=== PATIENT | male | born 1945 | race Caucasian/White ===

== ENCOUNTER 2024-11-29 05:13 | Inpatient (IN) | payer OTHER, MEDICARE, MEDICAID ==
[~2024-11-29] VITALS: Ht 190.5 cm; Wt 92.7 kg
[2024-11-29] VITALS (15 sets, daily range): BP systolic 100–143; BP diastolic 57–99; PULSE 99–137; RESP 13–21; TEMP 97.4–98.5; O2SAT 92–98
--- NOTE | 2024-11-29 06:04 | Physician Documentation ---
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 Symptoms began after a trip and fall in the driveway. He had hurt his left ankle in his diagnosed with an ankle sprain izzy bandage was applied and when he removed it 4-5 days later he noticed the black discoloration of his toes. He is having increasing discomfort in his foot and ultimately presented to [facility] where he was diagnosed with peripheral arterial disease and cellulitis given heparin and antibiotics and transferred here PT INR 1.12 PTT 33 creatinine 1.37 GFR 53 CRP 162 magnesium 2.1 lactic acid 2.[address] extremity left with IV contrast no fracture no dislocation or cortical destruction mild lateral soft tissue swelling in the left ankle ultrasound artery bilateral right SFA occlusion monophasic waveforms throughout the left lower extremity no flow in the mid and distal posterior femoral artery. He received Zosyn 3.375 g and vancomycin Medication Reconciliation Allergies: Coded Allergies: No Known Allergies (Unverified , 11/29/24) Review of Systems All Other Systems at this time: Reviewed and Negative Physical Exam Vital Signs: RN Vital Signs have been reviewed: Yes, Temperature: 98.5, Source: Oral, Heart Rate: 106, Respiratory Rate: 14, BP: 120/79, Pulse Oximetry: 97, Weight: 92.720 Physical Exam Left 4th 5th toes necrotic large ulcer over dorsum of left foot, erythema dorsum of foot into distal left leg. Palpable PT pulse bilaterally. Right lower extremity decreased circulation nontender skin intact Well-appearing no distress resting comfortably in bed No JVD Moist mucous membranes Pulmonary clear to auscultation bilaterally Cardiac no murmur Abdomen is soft nontender Lower extremity no edema Awake alert oriented Progress Progress Note 10:43 a.m. consulted vascular surgeon Dr. Porras who agrees with treatment plan and will evaluate the patient Consulted hospitalist who agrees with management plan and graciously accept for admission Labs independently interpreted show MATILDE, no leukocytosis 1:17 p.m. reassessed patient he is still tachycardic AFib RVR. Fluid bolus ordered metoprolol given Results/Orders Reviewed/noted all lab results: Yes Results/Orders Orders - AMINAH TONY MD Heparin 25,000 Unit/250ml Bag (Heparin 2 (11/29/24 06:05) Heparin 10,000 Unit/Ml 1ml (Heparin 10,0 (11/29/24 06:05) Cta Abdomen Lower Extr Runoff (11/29/24 ) Dvt Ptt (11/29/24 13:30) Page Hospitalist (11/29/24 11:10) Fill Out Med Reconciliation (11/29/24 11:10) Ringers Solution, Lacted (Lactated Ringe (11/29/24 12:55) Electrocardiogram (11/29/24 ) Electrocardiogram (11/29/24 13:20) Completed Orders - AMINAH TONY MD Pt Inr (11/29/24 06:05) PTT (11/29/24 06:05) Cbc/Diff (11/29/24 06:05) Heparin 10,000 Unit/Ml 1ml (Heparin 10,0 (11/29/24 06:05) BMP (11/29/24 06:05) Cta Abdomen Lower Extr Runoff (11/29/24 ) Message To Nursing (11/29/24 07:20) Iohexol 350mg/Ml 100ml (Omnipaque 350mg/ (11/29/24 07:32) Iohexol 350mg/Ml 50ml Inj (Omnipaque 350 (11/29/24 07:32) Ringers Solution, Lacted (Lactated Ringe (11/29/24 07:35) Ua W/Microscopic, Cult If Ind (11/29/24 10:12) Metoprolol Tartrate Inj (Lopressor Iv) (11/29/24 12:55) Medications Received in ER Medications (Trade) Dose Ordered Sig/Nasim Route PRN Reason Start Time Stop Time Status Last Admin Dose Admin (heparin 10,000 unit/ml 1ml inj) 7,400 units ONCE ONCE IV 11/29/24 06:05 11/29/24 07:11 DC 11/29/24 07:26 7,400 UNITS Heparin Sodium/ Dextrose 250 ml @ 17 mls/hr [id number] PRN IV TO MAINTAIN PTT WITHIN RANGE 11/29/24 06:05 11/29/24 07:27 17 MLS/HR Lactated Ringer's 1,000 ml @ 80 mls/hr [id number] IV 11/29/24 11:30 11/29/24 12:20 80 MLS/HR Vital Signs 11/29/24 11/29/24 11/29/24 11/29/24 05:14 05:14 05:25 09:22 Temp 98.5 98.5 Pulse 106 106 106 Resp 18 18 14 17 B/P (MAP) 120/79 (93) 120/79 127/77 (94) Pulse Ox 97 97 92 O2 Delivery Room Air Room Air 11/29/24 11/29/24 11/29/24 09:22 11:37 11:37 Pulse 106 99 99 Resp 17 15 15 B/P (MAP) 127/77 (94) 127/80 (96) 127/80 (96) Pulse Ox 92 98 98 O2 Delivery Room Air Laboratory Tests Test 11/29/24 06:46 11/29/24 10:12 11/29/24 13:10 White Blood Count 6.2 Red Blood Count 4.32 L Hemoglobin 14.1 Hematocrit 43.4 Mean Corpuscular Volume 100.5 H Mean Corpuscular Hemoglobin 32.6 H Mean Corpuscular Hemoglobin Concent 32.4 L Red Cell Distribution Width 16.8 H Platelet Count 194 Mean Platelet Volume 8.0 Neutrophils (%) (Auto) 77.7 H Lymphocytes (%) (Auto) 9.6 L Monocytes (%) (Auto) 10.4 Eosinophils (%) (Auto) 1.7 Basophils (%) (Auto) 0.6 Neutrophils # (Auto) 4.8 Lymphocytes # (Auto) 0.6 L Monocytes # (Auto) 0.6 Eosinophils # (Auto) 0.1 Basophils # (Auto) 0.0 CBC Comment Prothrombin Time 10.4 INR International Normalized Ratio 1.0 Activated Partial Thromboplast Time 30 Coagulation Comments Sodium Level 144 Potassium Level 4.6 Chloride Level 110 H Carbon Dioxide Level 24.6 Anion Gap 9 Blood Urea Nitrogen 16 Creatinine 1.43 H Estimated GFR/1.73 m2 48 BUN/Creatinine Ratio 11.2 Glucose Level 112 H Calcium Level 8.6 Albumin 2.4 L Chemistry Comments Urine Specimen Description Cln catch midstream Urine Color Yellow Urine Clarity Clear Urine pH 6.0 Urine Specific [place] 1.010 Urine Protein Negative Urine Glucose (UA) >=1000 H Urine Ketones Trace H Urine Occult Blood Negative Urine Nitrite Negative Urine Bilirubin Negative Urine Urobilinogen 0.2 Urine Leukocyte Esterase Negative Urine RBC 0-2 Urine WBC 0-4 Urine Squamous Epithelial Cells Few Urine Bacteria 1+ Urine Culture Indicated Not ind Volume Urine Centrifuged 10 ml Urine Comment EKG/XRAY/CT/US/VASC/MRI EKG : Additional Comment EKG independently interpreted by myself time 1:24 p.m. indication rapid heart rate atrial fibrillation rate 122 normal axis normal intervals lateral ST depressions no ST-elevation CT : Impression CTA aorta independently interpreted by myself shows extensive peripheral arterial disease SFA occlusion on the left with distal reconstitution Medical Decision Making Additional Information Arterial occlusion/peripheral artery disease, AFib RVR, sepsis Departure Disposition: ADMITTED INPATIENT Admitted to Inpatient Unit: to hospitalist Impression: Primary Impression: PAD (peripheral artery disease) Additional Impression: Atrial fibrillation with RVR Referrals: NO PRIMARY CARE PROVIDER (PCP) Critical Care Note Total Time (mins): 45 Critical Care Note The very real possibility of a deterioration of this patient's condition required the highest level of my preparedness for sudden, emergent intervention. I provided critical care services, which included medication orders, frequent reevaluations of the patient's condition and response to treatment, ordering and reviewing test results, and discussing the case with various consultants. Excludes time spent performing separately billable procedures. The critical care time associated with the care of the patient was 45 minutes in the management of limb threatening ischemia, AFib RVR requiring intervention Signature Scribe Signature: No scribe Attestation: AMINAH Yanes MD Nov 29, 2024 06:04
[2024-11-29 07:00] LABS: BASOPHILS % (AUTO) 0.6 % (0-1); EOSINOPHILS # (AUTO) 0.1 X10'3 (0-0.9); EOSINOPHILS % (AUTO) 1.7 % (0-6); HEMATOCRIT 43.4 % (42.0-52.0); HEMOGLOBIN 14.1 g/dl (14.0-17.9); LYMPHOCYTES # (AUTO) 0.6 X10'3 (1.1-4.8); LYMPHOCYTES % (AUTO) 9.6 % (21-51); MEAN CORPUSCULAR HEMOGLOBIN 32.6 PG (27.0-31.0); MEAN CORPUSCULAR HGB CONC 32.4 g/dL (33.0-36.5); MEAN CORPUSCULAR VOLUME 100.5 FL (78-98); MONOCYTES # (AUTO) 0.6 X10'3 (0-0.9); MONOCYTES % (AUTO) 10.4 % (2-12); NEUTROPHILS # (AUTO) 4.8 X10'3 (1.8-7.7); NEUTROPHILS % (AUTO) 77.7 % (42-75); PLATELET COUNT 194 X10'3 (140-440); RED BLOOD COUNT 4.32 X10'6 (4.70-6.10); RED CELL DISTRIBUTION WIDTH 16.8 % (11.5-14.5); WHITE BLOOD COUNT 6.2 X10'3 (4.5-11.0)
[2024-11-29 07:07] LABS: ALBUMIN 2.4 G/DL (3.4-5.0); ANION GAP 9 (8-16); APTT 30 SECONDS (22-32); BLOOD UREA NITROGEN 16 MG/DL (7-18); BUN/CREATININE RATIO 11.2 (10.0-20.0); CALCIUM 8.6 MG/DL (8.5-10.1); CHLORIDE 110 MMOL/L (99-107); CREATININE 1.43 MG/DL (0.60-1.10); GLUCOSE 112 MG/DL (70-104); POTASSIUM 4.6 MMOL/L (3.5-5.1); PROTHROMBIN TIME 10.4 SECONDS (9.0-12.0); SODIUM 144 MMOL/L (135-145); TOTAL CARBON DIOXIDE 24.6 MMOL/L (24-32); eCRCL 51 ML/MIN; eGFR 48 ML/MIN
[2024-11-29] MEDS: heparin 10,000 units/1 ML INJ IV ONE (07:26)
[2024-11-29] MEDS: heparin 25,000 UNIT/250ml bag 250 ML IV PRN (07:27)
[2024-11-29] MEDS: MESSAGE TO NURSING IV ONE ×2 (07:27→22:20)
[2024-11-29] MEDS ORDERED: iohexol 350 MG/ML 50ML vial IV ONE (07:32)
[2024-11-29] MEDS ORDERED: iohexol 350MG/ML 100ml bottle IV ONE (07:32)
[2024-11-29] MEDS: ringers solution, lacted 1,000 ML IV ONE ×2 (07:45→15:35)
--- NOTE | 2024-11-29 10:06 | RADIOLOGY REPORT ---
CLINICAL INFORMATION: Arterial occlusion. Right SFA completely occluded on recent lower extremity ar terial duplex exam. TECHNIQUE: Axial CTA imaging of the abdominal aorta and bilateral lower extremities was performed af ter the uneventful administration of 100 mL Omnipaque 350 IV contrast. Coronal and sagittal reformat jay images were obtained. Volume rendered 3-D reconstructed images of the arterial vasculature were c onstructed at an independent workstation with concurrent physician supervision. One or more of the fo llowing dose reduction techniques were used: Automated exposure control. Adjustment of mA and/or kV a ccording to patient size. CTDIvol = 4.36, 11.5, 20.36, 0.07, 0.07 mGy DLP = 2189.89 mGy-cm COMPARISON: Lower extremity arterial duplex exam dated 11/28/2024. FINDINGS: Infrarenal abdominal aortic aneurysm measures up to 3.3 x 3.5 cm with prominent mural thro mbus. Calcified and noncalcified atheromatous plaque throughout the abdominal aorta and its main bran ches. Origins of the celiac artery, SMA, bilateral renal arteries, and WILIAN appear patent without sign ificant stenosis. Dense calcification of the common iliac arteries and internal and external iliac ar teries bilaterally with areas of severe stenosis in the bilateral internal iliac arteries and moderat e stenosis in the right external iliac artery. In the right lower extremity, there is dense calcified plaque in the right common femoral and superfi cial and deep femoral arteries with complete occlusion of the proximal right SFA just distal to its o rigin, remaining occluded to the proximal to mid right popliteal artery level. There is reconstituti on of flow of the mid to distal right popliteal artery due to collateral flow, likely from genicular branches. There is dense calcification of the right anterior tibial, posterior tibial, and peroneal a rteries. Difficult to delineate flow of contrast from the densely calcified simmons in these arteries. There are intermittent areas of severe stenosis in the right anterior tibial artery. There is flow of contrast in the foot from the posterior tibial artery and dorsalis pedis artery. Incidental note is made of marked fatty atrophy of the posterior compartment musculature of the right lower leg. In the left lower extremity, there is dense calcification of the common femoral and superficial and d eep femoral arteries. There are areas of moderate to severe stenosis in the right SFA with poorly vis ualized contrast opacification of the level of the distal SFA, possible complete or near complete occ lusion, with flow demonstrated more distally of the proximal popliteal artery, which remains patent d own to the bifurcation. There is dense calcification in the anterior tibial, posterior tibial, and pe roneal arteries. Difficult to delineate flow of contrast in these arteries from the densely calcified simmons. Intermittent severe stenoses, possible complete or near complete occlusions along portions of these arteries. There appears to be flow to the foot via the peroneal artery. The posterior tibial a rtery is occluded at the level of the ankle. Possible trace intermittent flow of contrast in the dors ramiro pedis artery at the level of the ankle and foot. Dependent atelectasis in the lung bases. The liver, and adrenal glands appear grossly unremarkable fo r the arterial phase of contrast. No calcified gallstones visualized in the gallbladder. No biliary d uctal dilatation. Focal area of hypoattenuation in the spleen measures up to 6.3 cm in greatest dimen kenyon, not well characterized on this single phase of contrast. Pancreatic duct is prominent, measurin g up to 4 mm in diameter. Small low-attenuation lesions in both kidneys, most likely cysts, although some are too small to characterize. No hydronephrosis. No retroperitoneal lymphadenopathy. Nonspecifi c nondilated fluid-filled small bowel loops. No small bowel obstruction. Appendix is unremarkable. Sc attered colonic diverticula without adjacent inflammatory changes to suggest diverticulitis. Prostate and bladder appear unremarkable. Abdominal wall appears unremarkable. IMPRESSION: 1. Infrarenal abdominal aortic aneurysm. No dissection. 2. Extensive atherosclerotic disease as detailed above. 3. Complete occlusion of the right SFA at its proximal aspect extending to the mid popliteal level, w here there is reconstitution due to collateral flow. 4. Complete or near complete occlusion of the distal left SFA with flow demonstrated of the proximal left popliteal artery. 5. Densely calcified arteries in the lower legs bilaterally. Difficult to delineate flow of contrast from the densely calcified simmons of these arteries. There is flow demonstrated in the right foot via the right posterior tibial and dorsalis pedis arteries. There is flow demonstrated in the left foot via the peroneal artery and with likely intermittent flow in the dorsalis pedis artery. Distal left p osterior tibial artery appears to be occluded at the level of the ankle. 6. Ovoid area of hypoattenuation in the spleen, not well evaluated on the arterial phase of contrast. Mass not excluded. Correlate with clinical findings. Ultrasound could be considered to further jen racterize if clinically indicated. 7. Additional findings as detailed above.
[2024-11-29 10:26] LABS: BILIRUBIN,URINE NEGATIVE (Neg); CLARITY,URINE CLEAR (Clear); COLOR,URINE YELLOW (Yellow); GLUCOSE, URINE >=1000 mg/dl (Neg); KETONES,URINE TRACE mg/dl (Neg); LEUKOCYTE ESTERASE ,URINE NEGATIVE (Neg); NITRITES, URINE NEGATIVE (Neg); OCCULT BLOOD,URINE NEGATIVE (Neg); PROTEIN,URINE NEGATIVE (Neg); UA COLLECTION TYPE CLN CATCH MIDSTREAM; UROBILINOGEN,URINE 0.2 E.U/dL (0.2-1.0)
[2024-11-29 10:32] LABS: BACTERIA,URINE 1+ /HPF (Neg); RBC,URINE 0-2 /HPF (0-2); SQUAMOUS EPITHELIAL CELL,UR FEW /LPF (FEW); WBC,URINE 0-4 /HPF (0-4)
[2024-11-29] MEDS ORDERED: potassium Cl 20 mEq SR tablet PO PRN ×2 (11:30)
[2024-11-29] MEDS ORDERED: ondansetron/PF 4mg/2ml inj IV PRN (11:30)
[2024-11-29] MEDS ORDERED: ondansetron 4mg rapidly disintigrating tab PO PRN (11:30)
[2024-11-29] MEDS ORDERED: HYDROcodone/acetaminophen 5mg/325mg tablet PO PRN (11:30)
[2024-11-29] MEDS ORDERED: morphine 2 MG/ML inj. syringe IV PRN (11:30)
[2024-11-29] MEDS ORDERED: potassium Cl 40MEQ/1/2NS 520ml 520 ML IV PRN (11:30)
[2024-11-29] MEDS ORDERED: magnesium hydroxide 30ml (MOM) UD suspension PO PRN (11:30)
[2024-11-29] MEDS ORDERED: acetaminophen 325mg tablet PO PRN ×2 (11:30)
[2024-11-29] MEDS ORDERED: magnesium sulf-water 4G/100mL 100 ML IV PRN (11:30)
[2024-11-29] MEDS ORDERED: magnesium sulf-water 2g/50mL 50 ML IV PRN (11:30)
[2024-11-29] MEDS: ringers solution, lacted 1,000 ML IV SCH (12:20)
[2024-11-29] MEDS: metoprolol tartrate 1mg/ml inj IV SCH (13:00)
--- NOTE | 2024-11-29 13:07 | HISTORY AND PHYSICAL ---
History & Physical Providers to ~ History of Present Illness Reason for Admit\Complaint: SFA occlusion, cellulitis, afib rvr History of Present Illness Aramis Teran is a 79-year old male with a past medical history of atrial fibrillation on Eliquis, CAD s/p PCI, chronic systolic heart failure who was transferred from [facility] for evaluation of left foot cellulitis and necrosis that started after trip and fall 2 weeks ago. Patient denies prior CVA, DVT/PE, or GIB. Patient denies syncope, chest pain, palpitations, shortness of breath, abdominal pain, n/v/d, dysuria, fever, chills. Patient reports non- improving ulcer in his left foot after he had a mechanical fall in the driveway 2 weeks ago. He reports increasing discomfort and pain in his left foot. Initial diagnostic findings are notable for elevated lactic acid at 2.49 at the transferring facility, afib w/ rvr, CTA with runoff revealing complete occlusion of the right SFA at its proximal aspect extending to the mid popliteal level and complete or near complete occlusion of the distal left SFA. Surgeon Dr. Joshi is consulted. Patient is to be admitted for further workups and treatment. Allergies: Coded Allergies: No Known Allergies (Unverified , 11/29/24) Past Medical History Past Medical History Atrial fibrillation CAD s/p cardiac stent Systolic heart failure Chronic alcohol use Past Surgical History Surgical History Comment s/p cardiac stent, about 5 years ago Past Social History Social History Comment Alcohol: Daily, 2 shots of hard liquor Tobacco: Denies Illicit drug use: Denies Living situation: Lives at home with family ROS ROS Other than positives in HPI, all 14 review of systems are negative Exam Vitals: Vital Signs Date Time Temp Pulse Resp B/P (MAP) Pulse Ox O2 Delivery O2 Flow Rate FiO2 11/29/24 11:37 99 15 127/80 (96) 98 11/29/24 05:14 98.5 General: Generalized weakness, A&Ox 3, NAD HEENT: Normocephalic, PERRLA Neck: Supple, trachea midline, no JVD Chest: Clear to auscultation bilaterally Cardiovascular: IRIR, tachycardic Abdomen: Soft and nontender Extremities: +1 Edema of left foot, erythematous left foot, tenderness of left foot with palpation Central Nervous System: CN II-XII intact, no focal deficits Musculoskeletal: No paraspinal muscle tenderness, no muscle spasm Skin: Necrosis of dorsum of left foot and 1st&4th&5th phalanx of left foot, necrosis of lateral left foot Diagnostic Data Last Recorded Lab Results: 11/29/24 0646 11/29/24 0646 Diagnostic Data: Laboratory Tests Test 11/29/24 06:46 Prothrombin Time 10.4 SECONDS (9.0-12.0) INR International Normalized Ratio 1.0 INR Activated Partial Thromboplast Time 30 SECONDS (22-32) Coagulation Comments Additional Plan # PAD # SFA occlusion, b/l LE # Cellulitis, left foot # Sepsis 2/2 cellulitis # Aortic aneurysm, 3.5cm -At transferring facility: PT INR 1.12 PTT 33 creatinine 1.37 GFR 53 CRP 162 magnesium 2.1 lactic acid 2.49 normalized to 1.3, procal 2.2, WBC 8.8 CT extremity left with IV contrast no fracture no dislocation or cortical destruction mild lateral soft tissue swelling in the left ankle ultrasound artery bilateral right SFA occlusion monophasic waveforms throughout the left lower extremity no flow in the mid and distal posterior femoral artery -CTA w/runoff revealing complete occlusion of the right SFA at its proximal aspect extending to the mid popliteal level and complete or near complete occlusion of the distal left SFA, infrarenal abdominal aortic aneurysm 3.3x3.5cm -start heparin drip, IVF, abx; consulted surgeon Dr. Joshi and ID Dr. Hahn; follow Lexiscan # Atrial fibrillation w/ RVR -lytes wnl, no hypoxia, not controlled with initially given metoprolol tart IV, start Cardizem drip LVEF 60% start prn metoprolol tart, start oral amiodarone; pending med rec -follow TTE, TSH/T4 # Prerenal MATILDE 2/2 vasomotor nephropathy -start IVF, follow labs # CAD s/p cardiac stent (>5 years ago) # Chronic systolic heart failure -pending med rec # Alcohol abuse -mild alcohol withdrawal protocol, thiamine, folic acid DVT/VTE prophylaxis: heparin Code status: Full code I spent a total of 35 minutes discussing Advanced Care Planning measures with the patient. Advance care planning: Discussed with patient the importance of advance care planning in case of emergent situation. We discussed various resuscitative measures/ ACP with the patient at the time of admission. Patient voiced understanding and patient has decided on a full code status. Date of Service: Nov 29, 2024 Billing Provider: NAPOLEON THOMPSON Common Visit Codes: 30890-TEVGWBW INP/OBS CARE (HIGH) Secondary Visit Codes: 08097-QAEIZFGE CARE PLAN 30 MINUTES NAPOLEON THOMPSON Nov 29, 2024 13:07
[2024-11-29] MEDS: metoprolol tartrate 1mg/ml inj IV ONE (14:28)
--- NOTE | 2024-11-29 14:29 | ELECTROCARDIOGRAPH REPORT ---
[facility] Test Date: 2024-11-29 Test Time: 13:24:59 Pat Name: OLGA MIKE Department: EMERGENCY ROOM Room: [place] [address] Gender: M Blind Installer: JANN : 1945 Requested By: AMINAH TONY Order Number: [id number] Reading MD: Dr. Crispin Henley Measurements Intervals [place] Rate: 122 P: 0 VT: 0 QRS: 68 QRSD: 92 T: 20 QT: 339 QTc: 483 Interpretive Statements Atrial fibrillation Low voltage, extremity leads Borderline repolarization abnormality Borderline prolonged QT interval Baseline wander in lead(s) I,II,aVR,aVF,V5,V6 Electronically Signed On 12-11-2024 17:54:[address] Crispin Henley Please click the below link to view image of tracing.
[2024-11-29 14:40] LABS: CHOLESTEROL 94 MG/DL (0-200); HDL CHOLESTEROL 48 MG/DL (35-60); LDL CHOLESTEROL 35 MG/DL (50-100); TRIGLYCERIDES 65 MG/DL (20-135)
[2024-11-29 15:01] LABS: HEMOGLOBIN A1C 4.5 % (4.5-6.2)
[2024-11-29] MEDS ORDERED: LORazepam 1 MG tablet PO PRN (15:35)
[2024-11-29] MEDS ORDERED: haloperidol lactate 5mg/ml inj IM PRN (15:35)
[2024-11-29] MEDS ORDERED: LORazepam 2 mg/ml vial IV PRN (15:35)
[2024-11-29] MEDS ORDERED: haloperidol 5mg tablet PO PRN (15:35)
[2024-11-29] MEDS ORDERED: sevoflurane 250ml liquid IH ONE (16:05)
[2024-11-29] MEDS: piperacillin/tazo 3.375gm/50ml 50 ML IV SCH (16:25)
[2024-11-29] MEDS: folic acid 1mg tablet PO SCH (16:31)
[2024-11-29] MEDS: thiamine 100mg tablet PO SCH (16:31)
[2024-11-29] MEDS ORDERED: metoprolol tartrate 1mg/ml inj IV PRN ×2 (17:25→18:10)
[2024-11-29 17:27] LABS: FREE T4 (FREE THYROXINE) 1.12 NG/DL (0.73-1.40); THYROID STIMULATING HORMONE 1.71 ulU/ml (0.34-4.50)
--- NOTE | 2024-11-29 17:43 | CARDIOLOGY REPORT ---
APPROVED REPORT EXAM: Comprehensive 2D, Doppler, and color-flow Echocardiogram. Patient Location: ED2 Blood Pressure: 127/80 mmHg Heart Rate: 120 bpm Rhythm: Atrial Fibrillation Indications AFIB CAD Hx stent [facility] Services Specialist at [place] is [facility] No previous echo 2D Dimensions LA Diam4.9 cm IVSd 1.2 (0.7-1.1cm) LVDd 3.9 cm PWd 1.2 (0.7-1.1cm) IVSs 1.7 (0.8-1.2cm) LVDs 2.6 (2.5-4.0cm) Aortic Root(2D) 3.5 cm PWs 1.5 (0.8-1.2cm) LVOT Diameter 2.13 (1.8-2.4cm) LVEF(%) 62.9 (>50%) Ao Asc Diam.3.27 cmIVC 21.90 mm FS (%) 33.6 % SV 42.6 ml CO 5.2 L/min M-Mode Dimensions MV EPSS 0.8 (<0.5cm) Aortic Valve AoV Peak Prudencio. 97.5 cm/s AoV VTI 16.8 cm AO Peak GR. 3.8 mmHg AO Mean GR. 2 mmHg LVOT VTI 15.28 cm LVOT Peak Prudencio. 87.8 cm/s MICHA(VTI)/BSA 3.25 cm2/m2 MICHA (VTI) 3.25 cm2 Mitral Valve MV E Velocity 119.5 cm/s MV Peak Gr. 6 mmHg MV DECEL TIME 120 ms MV PHT 64 ms MVA (PHT) 3.44 cm2 MV FOcr312.6 cm/s Tricuspid Valve TR P. Velocity 226 cm/s RAP ESTIMATE 15 mmHg TR Peak Gr. 20 mmHg RVSP 35 mmHg LEFT VENTRICLE LV is normal in size with mild concentric hypertrophy. Overall systolic function is normal. LVEF is 6 0%. RIGHT VENTRICLE RV appears mildly dilated with normal contractility. RVSP is estimated at 35 mmHG. ATRIA Moderate biatrial enlargement. AORTIC VALVE Trileaflet AV appears sclerotic without stenosis. No insufficiency. MITRAL VALVE MV is thickened with mild annular calcification and no stenosis. Trace mitral regurgitation. TRICUSPID VALVE The tricuspid valve is normal in structure. Trace tricuspid regurgitation. PULMONIC VALVE The pulmonary valve is normal in structure. Trace pulmonic regurgitation. GREAT VESSELS The aortic root is normal in size. The ascending aorta is normal in size. IVC is dilated and collapse s greater than 50% with inspiration. PERICARDIUM There is no pericardial effusion. Other Information Study Quality: Adequate Conclusion LV is normal in size with mild concentric hypertrophy. Overall systolic function is normal. LVEF is 6 0%. RV appears mildly dilated with normal contractility. RVSP is estimated at 35 mmHG. Moderate biatrial enlargement. Trileaflet AV appears sclerotic without stenosis. No insufficiency. MV is thickened with mild annular calcification and no stenosis. Trace mitral regurgitation. The tricuspid valve is normal in structure. Trace tricuspid regurgitation. The pulmonary valve is normal in structure. Trace pulmonic regurgitation. There is no pericardial effusion.
--- NOTE | 2024-11-29 18:07 | PROGRESS NOTE ---
Progress Note ID Providers to CC ~ Progress Note Progress Note: pt seen-needs angio to identify target-will discuss with AMITA Diop MD Nov 29, 2024 18:07
[2024-11-29] MEDS ORDERED: nitroGLYCERIN 0.4mg SUBLingual tab SL PRN (18:10)
[2024-11-29] MEDS ORDERED: aminophylline 500mg/20ml vial IV PRN (18:10)
[2024-11-29] MEDS: diltiazem-NS 100mg/100ml 100 ML IV SCH (19:54)
[2024-11-29] MEDS: K and/or MAG REPLACEMENT MC SCH (20:00)
[2024-11-29] MEDS: docusate sod 100mg capsule PO SCH (20:00)
[2024-11-29] MEDS: atorvastatin 20mg tablet PO SCH (20:30)
[2024-11-29] MEDS: amiodarone 200mg tablet PO SCH (20:30)
[2024-11-30] VITALS (40 sets, daily range): BP systolic 96–144; BP diastolic 56–97; PULSE 74–146; RESP 12–23; TEMP 97.1–98; O2SAT 93–98
[2024-11-30] MEDS: MESSAGE TO NURSING IV ONE ×4 (01:14→18:47)
[2024-11-30 01:58] LABS: BASOPHILS % (AUTO) 0.6 % (0-1); EOSINOPHILS # (AUTO) 0.1 X10'3 (0-0.9); EOSINOPHILS % (AUTO) 2.3 % (0-6); HEMATOCRIT 36.9 % (42.0-52.0); HEMOGLOBIN 12.2 g/dl (14.0-17.9); LYMPHOCYTES # (AUTO) 0.7 X10'3 (1.1-4.8); LYMPHOCYTES % (AUTO) 11.9 % (21-51); MEAN CORPUSCULAR HEMOGLOBIN 32.8 PG (27.0-31.0); MEAN CORPUSCULAR VOLUME 99.5 FL (78-98); MEAN PLATELET VOLUME 8.2 FL (7.4-10.4); MONOCYTES # (AUTO) 0.7 X10'3 (0-0.9); MONOCYTES % (AUTO) 12.1 % (2-12); NEUTROPHILS # (AUTO) 4.1 X10'3 (1.8-7.7); NEUTROPHILS % (AUTO) 73.1 % (42-75); PLATELET COUNT 171 X10'3 (140-440); RED BLOOD COUNT 3.71 X10'6 (4.70-6.10); RED CELL DISTRIBUTION WIDTH 16.9 % (11.5-14.5); WHITE BLOOD COUNT 5.7 X10'3 (4.5-11.0)
[2024-11-30 02:10] LABS: ALANINE AMINOTRANSFERASE 14 U/L (12-78); ALBUMIN 2.1 G/DL (3.4-5.0); ALBUMIN/GLOBULIN RATIO 0.7 (1.1-1.5); ALKALINE PHOSPHATASE 118 IU/L (46-116); ANION GAP 9 (8-16); ASPARTATE AMINO TRANSFERASE 30 U/L (10-37); BILIRUBIN,TOTAL 0.5 MG/DL (0.1-1.0); BLOOD UREA NITROGEN 14 MG/DL (7-18); CALCIUM 8.2 MG/DL (8.5-10.1); CHLORIDE 110 MMOL/L (99-107); GLUCOSE 104 MG/DL (70-104); MAGNESIUM 1.9 MG/DL (1.5-2.4); SODIUM 143 MMOL/L (135-145); TOTAL CARBON DIOXIDE 24.4 MMOL/L (24-32); TOTAL PROTEIN 5.3 G/DL (6.4-8.2); eCRCL 73 ML/MIN; eGFR 72 ML/MIN
[2024-11-30] MEDS: diltiazem-NS 100mg/100ml 100 ML IV ONE (03:13)
--- NOTE | 2024-11-30 03:21 | VASCULAR REPORT ---
EXAM: VAS VL ISIDORO ANKLE/BRACHIAL INDEX CLINICAL HISTORY: Left foot wound Peripheral vascular disease COMPARISON: None TECHNIQUE: Bilateral systolic ankle and brachial pressures are obtained, with ankle pulse volume waveforms and i ndices. FINDINGS: Pressures: Right Left Brachial IV mmHg 130 mmHg PT noncompressible mmHg 88 mmHg DP unable to obtain pressure mmHg 48 mmHg ISIDORO: Right Left n/a 0.68 Pulse volume waveforms: Monophasic IMPRESSION: Right ISIDORO not calculated due to noncompressible posterior tibial artery and unable to obtain right do rsalis pedis artery pressures . Left ISIDORO 0.68, [id number] peripheral arterial disease. Monophasic arterial waveforms, bilaterally suggestive of peripheral arterial disease. 1.0-1.4: normal 0.91-0.99 borderline 0.9: abnormal (i.e. PAD) 0.4-0.9: [id number] PAD <0.4: suggestive of severe PAD
--- NOTE | 2024-11-30 06:17 | ELECTROCARDIOGRAPH REPORT ---
[facility] Test Date: 2024-11-29 Test Time: 19:17:51 Pat Name: OLGA MIKE Department: 3rd FLOOR PCU Room: [facility] 301 A Gender: M Senior Data Integration Developer: : 1945 Requested By: NAPOLEON THOMPSON Order Number: [id number] Reading MD: Dr. Sergio Clancy Measurements Intervals [place] Rate: 131 P: 0 FL: 0 QRS: 37 QRSD: 73 T: -59 QT: 304 QTc: 449 Interpretive Statements Atrial fibrillation with rapid ventricular rate Ventricular premature complex Low voltage, extremity and precordial leads Borderline ST depression, diffuse leads Electronically Signed On 12-01-2024 8:18:[address] Sergio Clancy Please click the below link to view image of tracing.
[2024-11-30] MEDS: multivitamins, therapeutics tablet PO SCH (09:31)
[2024-11-30] MEDS: regadenoson 0.4mg/5ml syringe IV PRN (10:35)
--- NOTE | 2024-11-30 11:02 | VASCULAR REPORT ---
Bilateral lower extremity venous mapping Date: 11/30/2024 07:47 AM Clinical History: Mapping Comparison: None Findings: Duplex Doppler evaluation of the right and left lower extremity superficial veins was performed inclu ding color Doppler and spectral/pulsed waveform analysis. Measurements are provided below. RIGHT GREAT SAPHENOUS VEIN (GSV): 5.1 mm at the proximal thigh, normal compressibility with no mural thickening or thrombosis. 1.8 mm at the mid thigh, normal compressibility with no mural thickening or thrombosis. 1.9 mm at the distal thigh, normal compressibility with no mural thickening or thrombosis. 1.9 mm at the proximal calf, normal compressibility with no mural thickening or thrombosis. 1.2 mm at the mid calf, normal compressibility with no mural thickening or thrombosis. 3 mm at the distal calf, normal compressibility with no mural thickening or thrombosis. The GSV is patent on duplex Doppler evaluation. LEFT GREAT SAPHENOUS VEIN (GSV): 5.9 mm at the proximal thigh, normal compressibility with no mural thickening or thrombosis. 2.3 mm at the mid thigh, normal compressibility with no mural thickening or thrombosis. 3.3 mm at the distal thigh, normal compressibility with no mural thickening or thrombosis. 2.7 mm at the proximal calf, normal compressibility with no mural thickening or thrombosis. 3.6 mm at the mid calf, normal compressibility with no mural thickening or thrombosis. 3.9 mm at the distal calf, normal compressibility with no mural thickening or thrombosis. The GSV is patent on duplex Doppler evaluation. IMPRESSION: Lower extremity superficial venous mapping as detailed above. END IMPRESSION:
--- NOTE | 2024-11-30 11:41 | PROGRESS NOTE ---
Daily Progress Note Providers to CC ~ Antibiotic Timeout Antibiotic Ordered?: Yes Subjective No acute events overnight. Patient examined at bedside. No new complaints. Patient denies chest pain, sob, palpitations, abdominal pain, n/v/d. Angiogram by IR today. Taya shows reversible inferoseptal defect. Vss, labs unremarkable. Continued on abx. Afib w/ controlled rate, on diltiazem drip and oral amiodraone. LVEF 60% without significant VHD. Patient is clinically and hemodynamically stable. Objective Vital Signs Date Time Temp Pulse Resp B/P (MAP) Pulse Ox O2 Delivery O2 Flow Rate FiO2 11/30/24 10:45 88 18 109/66 98 Room Air 11/30/24 02:00 97.2 Result Diagram: 11/30/2411411/30/24114 Physical Exam General: Generalized weakness, A&Ox 3, NAD HEENT: Normocephalic, PERRLA Neck: Supple, trachea midline, no JVD Chest: Clear to auscultation bilaterally Cardiovascular: IRIR Abdomen: Soft and nontender Extremities: +1 Edema of left foot, erythematous left foot, tenderness of left foot with palpation Central Nervous System: CN II-XII intact, no focal deficits Musculoskeletal: No paraspinal muscle tenderness, no muscle spasm Skin: Necrosis of dorsum of left foot and 1st&4th&5th phalanx of left foot, necrosis of lateral left foot Coagulation Studies Laboratory Tests Test 11/29/24 06:46 11/30/24 08:00 Prothrombin Time 10.4 SECONDS (9.0-12.0) INR International Normalized Ratio 1.0 INR Activated Partial Thromboplast Time 30 SECONDS (22-32) APTT (Heparin Protocol) 61 SECONDS (45-75) Coagulation Comments Problem\Assessment\Plan # PAD # SFA occlusion, b/l LE # Cellulitis, left foot # Sepsis 2/2 cellulitis # Aortic aneurysm, 3.5cm -At transferring facility: PT INR 1.12 PTT 33 creatinine 1.37 GFR 53 CRP 162 magnesium 2.1 lactic acid 2.49 normalized to 1.3, procal 2.2, WBC 8.8 CT extremity left with IV contrast no fracture no dislocation or cortical destruction mild lateral soft tissue swelling in the left ankle ultrasound artery bilateral right SFA occlusion monophasic waveforms throughout the left lower extremity no flow in the mid and distal posterior femoral artery -CTA w/runoff revealing complete occlusion of the right SFA at its proximal aspect extending to the mid popliteal level and complete or near complete occlusion of the distal left SFA, infrarenal abdominal aortic aneurysm 3.3x3.5cm -start heparin drip, IVF, abx; consulted surgeon Dr. Joshi and ID Dr. Hahn; follow Lexiscan -11/30: Angiogram by IR. Bain shows reversible inferoseptal defect. # Atrial fibrillation w/ RVR -lytes wnl, no hypoxia, not controlled with initially given metoprolol tart IV, start Cardizem drip LVEF 60% start prn metoprolol tart, start oral amiodarone; pending med rec -follow TTE, TSH/T4 -11/30: TSH/T4, lytes wnl. Afib controlled rate on diltiazem drip and oral amiodraone. LVEF 60% without significant VHD. # Prerenal MATILDE 2/2 vasomotor nephropathy -start IVF, follow labs # CAD s/p cardiac stent (>5 years ago) # Chronic systolic heart failure -pending med rec # Alcohol abuse -mild alcohol withdrawal protocol, thiamine, folic acid Date of Service: Nov 30, 2024 Billing Provider: NAPOLEON THOMPSON Common Visit Codes: [id number] INP/OBS CARE(HIGH) NAPOLEON THOMPSON Nov 30, 2024 11:41
--- NOTE | 2024-11-30 12:03 | RADIOLOGY REPORT ---
Procedure: NM NM MAAME SCAN Exam Date: 11/30/2024 09:55 AM Reason for study/Clinical History: preop Clearance, hx of Afib Comparison Study: None Myocardial Perfusion Study with SPECT Technique: The patient received an intravenous injection of 8 mCi of technetium-99m sestamibi while at rest. After a short delay, SPECT tomographic images of the heart were obtained. The patient then went to the stress lab where they received an intravenous infusion of 0.4 mg lexiscan utilizing tavo dard protocol. 29.3 mCi of technetium-99m sestamibi was injected intravenously immediately after th e start of the lexiscan infusion. Gated SPECT tomographic images of the heart were acquired and proc essed. Findings: Reversible inferoseptal defect. End diastolic volume: 56 mL End systolic volume: 13 mL The left ventricular ejection fraction is 78 %. (normal greater than 50%) Impression: 1. Reversible inferoseptal defect 2. The left ventricular ejection fraction is 78 %.
[2024-11-30] MEDS ORDERED: iohexol 300mg/ml 100ml inj. ONE (14:43)
[2024-11-30] MEDS ORDERED: heparin 1,000 UNITS/NS 500ml 500 ML ONE (14:45)
--- NOTE | 2024-11-30 15:25 | PROGRESS NOTE ---
Progress Note - Angio Providers to CC ~ Angio Progress Note: Pt unfortunately was fed lunch. Regardless we can perform a diag angiogram with low risk, but intervention would be not possible. Left ASSEMBLER HYDRAULIC BACKHOE approach for access to aorta appears safe upon review of CTA. There is a moderate severe REIA calcific stenosis which later may be amenable to shockwave etc. Risks benefits alt of diag angiography, bilateral d/w pt and informed consent disclosed. Indic ation: Necrosis of dorsum of left foot and 1st&4th&5th phalanx of left foot, necrosis of lateral left foot. B Sfa occlu/severe disease. Severe calcific changes on runoff limits usefulness of CTA. RENNY RIVERS MD Nov 30, 2024 15:25
[2024-11-30] MEDS ORDERED: fentaNYL/PF 50MCG/1 ML 2ML syringe ONE (15:51)
[2024-11-30] MEDS ORDERED: diphenhydrAMINE 50 mg/ml inj ONE (15:54)
--- NOTE | 2024-11-30 16:44 | PROGRESS NOTE ---
Progress Note - Angio Providers to CC ~ Angio Progress Note: Bilateral leg angiogram performed via LCFA access, Mynx closure. Will dictate once post processing performed. Good imaging detail to the ankle bilaterally should make exam useful for surgical planning. Complications none, EBL less than 5cc. RENNY RIVERS MD Nov 30, 2024 16:44
[2024-11-30] MEDS: normal saline 1000ml 1,000 ML IV SCH (17:29)
--- NOTE | 2024-11-30 17:58 | RADIOLOGY REPORT ---
Pelvic angiogram including bilateral lower extremity runoff angiography HISTORY: Ulcerations along the left foot at multiple locations. Significant calcific changes throughout limit usefulness of CT angiography for surgical staging. After explanation of the above procedure and informed consent, patient was prepped and draped in usual sterile fashion. A surgical timeout was performed. Utilizing ultrasound guidance and a micropuncture kit entry was established into the left common femoral artery. A 5 [place] sheath was placed. Through the sheath a 5 [place] Omni Flush catheter was advanced to the distal abdominal aorta over a Glidewire. Runoff angiography was performed followed by oblique pelvic angiography with subsequent removal of the sauce catheter and subsequently sheath after which a 5 [place] Mynx arterial closure device was successfully deployed. A total of 89 cc Visipaque 320 used as contrast. Patient received a total of 25 mcg fentanyl but did not receive Versed. A total of 12 cc 1% lidocaine solution used for local anesthesia. Total fluoroscopy time was 3.7 minutes with dose of 164 mGy. A total of 25 mg Benadryl was given intravenously. FINDINGS: Diffuse calcific atheromatous changes are seen throughout the iliofemoral and bilateral lower extremity arterial system. Patent distal aorta and bilateral common iliac arteries. Patent bilateral internal iliac arteries. There is an approximate 40-50% area reduction in the proximal right external iliac artery. Similar but less severe 30-40% of area reduction seen at the proximal left external iliac artery. These may not be flow significant. Right lower extremity: Common femoral artery is patent. The superficial femoral artery is occluded throughout its entire course is appears to be long-standing. The profunda femoral artery is hypertrophied and supplies multiple tiny collaterals near the abductor canal level to reconstitute the above-knee popliteal artery approximately 3 cm above the plateau. The popliteal artery supplies a patent trifurcation although the anterior tibial artery is occluded at the mid tibia level. The peroneal artery is patent throughout its course. The posterior tibial artery demonstrates a focal 40-50 % area reduction at the mid tibia level and is otherwise unremarkable. There is a patent plantar arch demonstrated. Dorsalis pedis is patent. Left lower extremity: Common femoral artery is patent. The profunda femoral artery is patent. There are multisegment moderate to severe severity stenoses throughout the mid SFA on the order of 30-60% of area reduction. The popliteal artery is patent although approximately 2 cm below the tibial plateau there is a mild to moderate 30-40% of area reduction. This does not appear to be flow significant however. The anterior tibial artery is occluded at the proximal third of the tibia. The posterior tibial artery is occluded just distal to its origin with a collateral seen at the medial calf. There is one vessel runoff in the form of the peroneal artery although at the proximal peroneal artery there is an approximate 50% of area stenosis. A moderate size collateral vessel overlapping this stenosis augments flow to the peroneal artery distally. The peroneal artery supplies the most distal aspect of the posterior tibial artery and the plantar arch although a markedly diminutive dorsalis pedis vessel is demonstrated at the proximal ankle and occluded distally. IMPRESSION: Occluded right superficial femoral artery with reconstitution several centimeters above the tibial plateau of the right popliteal artery with two-vessel runoff in the form of the peroneal artery and posterior tibial artery. Focal 40-50% of area reduction at the mid right posterior tibial artery however. Multisegment moderate severity calcific atheromatous changes of the mid left superficial femoral artery. Focal mild stenosis of the popliteal artery 2 cm below the tibial plateau. One vessel runoff on the left in the form of the peroneal artery. The proximal left peroneal artery demonstrates a focal stenosis of approximately 50% of area reduction. Left plantar arch supplied via reconstituted extreme distal posterior tibial artery. Markedly diminutive caliber left dorsalis pedis artery which appears occluded distally.
[2024-11-30] MEDS: heparin 10,000 units/1 ML INJ IV PRN (18:46)
[2024-12-01] VITALS (32 sets, daily range): BP systolic 75–133; BP diastolic 47–90; PULSE 85–116; RESP 9–19; TEMP 94.6–98.1; O2SAT 91–99
[2024-12-01] MEDS: MESSAGE TO NURSING IV ONE ×2 (02:32→10:04)
[2024-12-01 08:03] LABS: BASOPHILS % (AUTO) 0.5 % (0-1); EOSINOPHILS # (AUTO) 0.1 X10'3 (0-0.9); EOSINOPHILS % (AUTO) 2.5 % (0-6); HEMATOCRIT 35.9 % (42.0-52.0); HEMOGLOBIN 11.7 g/dl (14.0-17.9); LYMPHOCYTES # (AUTO) 0.6 X10'3 (1.1-4.8); LYMPHOCYTES % (AUTO) 12.5 % (21-51); MEAN CORPUSCULAR HEMOGLOBIN 32.4 PG (27.0-31.0); MEAN CORPUSCULAR HGB CONC 32.6 g/dL (33.0-36.5); MEAN CORPUSCULAR VOLUME 99.2 FL (78-98); MONOCYTES # (AUTO) 0.5 X10'3 (0-0.9); MONOCYTES % (AUTO) 10.8 % (2-12); NEUTROPHILS # (AUTO) 3.6 X10'3 (1.8-7.7); NEUTROPHILS % (AUTO) 73.7 % (42-75); PLATELET COUNT 161 X10'3 (140-440); RED BLOOD COUNT 3.62 X10'6 (4.70-6.10); RED CELL DISTRIBUTION WIDTH 16.6 % (11.5-14.5); WHITE BLOOD COUNT 4.9 X10'3 (4.5-11.0)
[2024-12-01] MEDS: diltiazem SR 60mg capsule (twice daily) PO STA (08:39)
[2024-12-01 08:50] LABS: ALANINE AMINOTRANSFERASE 15 U/L (12-78); ALBUMIN 2.1 G/DL (3.4-5.0); ALBUMIN/GLOBULIN RATIO 0.7 (1.1-1.5); ALKALINE PHOSPHATASE 115 IU/L (46-116); ANION GAP 9 (8-16); ASPARTATE AMINO TRANSFERASE 27 U/L (10-37); BILIRUBIN,TOTAL 0.5 MG/DL (0.1-1.0); BLOOD UREA NITROGEN 6 MG/DL (7-18); BUN/CREATININE RATIO 5.4 (10.0-20.0); CHLORIDE 111 MMOL/L (99-107); CREATININE 1.12 MG/DL (0.60-1.10); GLUCOSE 139 MG/DL (70-104); MAGNESIUM 1.6 MG/DL (1.5-2.4); POTASSIUM 3.8 MMOL/L (3.5-5.1); SODIUM 144 MMOL/L (135-145); TOTAL CARBON DIOXIDE 23.7 MMOL/L (24-32); TOTAL PROTEIN 5.3 G/DL (6.4-8.2); eCRCL 65 ML/MIN; eGFR 63 ML/MIN
[2024-12-01] MEDS ORDERED: heparin 10,000 units/1 ML INJ ONE (14:07)
[2024-12-01] MEDS ORDERED: LIDOcaine 1% (10mg/ml) 2ml vial ONE (14:08)
--- NOTE | 2024-12-01 14:38 | PROGRESS NOTE ---
Progress Note ID Providers to CC ~ Progress Note Progress Note: discussed procedure including risks/benefits/alternatives AMITA BOUCHER MD Dec 01, 2024 14:38
--- NOTE | 2024-12-01 14:49 | RADIOLOGY REPORT ---
CHEST RADIOGRAPH Indication: prior to surgery Technique: Single frontal view of the chest was obtained COMPARISON: None FINDINGS: Lines and Tubes: None Lungs: Clear Pleura: No effusion. No pneumothorax. Cardiomediastinal contours: Unremarkable Bones: Unremarkable IMPRESSION: No acute disease.
[2024-12-01] MEDS ORDERED: iohexol 300 MG/1 ML 50ml polymer ONE (14:51)
[2024-12-01] MEDS ORDERED: fentaNYL /PF 50mcg/ml 5ml ampule ONE (15:03)
[2024-12-01] MEDS ORDERED: MIDAZolam 1 MG/ML 5ML VIAL ONE (15:03)
[2024-12-01] MEDS ORDERED: albumin (Human) 5% 250ml 250 ML IV ONE ×2 (15:56→17:55)
[2024-12-01] MEDS ORDERED: propofol inj 20 ML IV ONE (15:58)
[2024-12-01] MEDS ORDERED: LIDOcaine 2% (20mg/ml) 5ml vial ONE ×2 (15:58→15:59)
[2024-12-01] MEDS ORDERED: dexamethasone sod phosphate 4mg/ml inj. ONE (15:59)
[2024-12-01] MEDS ORDERED: acetaminophen 1,000mg/100ml IV 100 ML IV ONE (16:03)
[2024-12-01] MEDS ORDERED: vancomycin 1,000mg inj ONE (16:10)
[2024-12-01] MEDS ORDERED: rocuronium 10mg/ml inj IV ONE ×2 (16:11)
--- NOTE | 2024-12-01 16:25 | PROGRESS NOTE ---
Daily Progress Note Providers to CC ~ Antibiotic Timeout Antibiotic Ordered?: Yes Subjective No acute events overnight. Patient examined at bedside. No new complaints, not in acute distress. Patient denies chest pain, sob, palpitations, abdominal pain, n/v/d. Vss, labs unremarkable. Afib controlled rate, diltiazem drip transitioned to oral diltiazem. OR today. Objective Vital Signs Date Time Temp Pulse Resp B/P (MAP) Pulse Ox O2 Delivery O2 Flow Rate FiO2 12/01/24 14:37 97 18 97 12/01/24 14:00 98.1 122/72 (89) Room Air Result Diagram: 12/01/24 0737 12/01/24 0737 Physical Exam General: Generalized weakness, A&Ox 3, NAD HEENT: Normocephalic, PERRLA Neck: Supple, trachea midline, no JVD Chest: Clear to auscultation bilaterally Cardiovascular: IRIR Abdomen: Soft and nontender Extremities: +1 Edema of left foot, erythematous left foot, tenderness of left foot with palpation Central Nervous System: CN II-XII intact, no focal deficits Musculoskeletal: No paraspinal muscle tenderness, no muscle spasm Skin: Necrosis of dorsum of left foot and 1st&4th&5th phalanx of left foot, necrosis of lateral left foot Coagulation Studies Laboratory Tests Test 11/29/24 06:46 12/01/24 08:53 Prothrombin Time 10.4 SECONDS (9.0-12.0) INR International Normalized Ratio 1.0 INR Activated Partial Thromboplast Time 30 SECONDS (22-32) APTT (Heparin Protocol) 76 SECONDS (45-75) H Coagulation Comments Problem\Assessment\Plan # PAD # SFA occlusion, b/l LE # Cellulitis, left foot # Sepsis 2/2 cellulitis # Aortic aneurysm, 3.5cm -At transferring facility: PT INR 1.12 PTT 33 creatinine 1.37 GFR 53 CRP 162 magnesium 2.1 lactic acid 2.49 normalized to 1.3, procal 2.2, WBC 8.8 CT extremity left with IV contrast no fracture no dislocation or cortical destruction mild lateral soft tissue swelling in the left ankle ultrasound artery bilateral right SFA occlusion monophasic waveforms throughout the left lower extremity no flow in the mid and distal posterior femoral artery -CTA w/runoff revealing complete occlusion of the right SFA at its proximal aspect extending to the mid popliteal level and complete or near complete occlusion of the distal left SFA, infrarenal abdominal aortic aneurysm 3.3x3.5cm -start heparin drip, IVF, abx; consulted surgeon Dr. Joshi and ID Dr. Hahn; follow Taya -11/30: Angiogram by IR. Bain shows reversible inferoseptal defect. -12/01: [employer] [address] Dr[address] Rambo Harvey consulted, given cardiac clearance for surgery as stress test is evaluated to be unremarkable. OR today. # Atrial fibrillation w/ RVR -lytes wnl, no hypoxia, not controlled with initially given metoprolol tart IV, start Cardizem drip LVEF 60% start prn metoprolol tart, start oral amiodarone; pending med rec -follow TTE, TSH/T4 -11/30: TSH/T4, lytes wnl. Afib controlled rate on diltiazem drip and oral amiodraone. LVEF 60% without significant VHD. -12/01: afib controlled rate, diltiazem drip transitioned to oral diltiazem. # Prerenal MATILDE 2/2 vasomotor nephropathy -start IVF, follow labs # CAD s/p cardiac stent (>5 years ago) # Chronic systolic heart failure -pending med rec # Alcohol abuse -mild alcohol withdrawal protocol, thiamine, folic acid Date of Service: Dec 01, 2024 Billing Provider: NAPOLEON THOMPSON Common Visit Codes: [id number] INP/OBS CARE(HIGH) NAPOLEON THOMPSON Dec 01, 2024 16:25
[2024-12-01] MEDS ORDERED: morphine 4 MG/ML inj SYRINge IV PRN (16:35)
[2024-12-01] MEDS ORDERED: hydrALAZINE 20mg/ml inj. IV PRN (16:35)
[2024-12-01] MEDS ORDERED: ondansetron/PF 4mg/2ml inj IV PRN (16:35)
[2024-12-01] MEDS ORDERED: fentaNYL/PF 50MCG/1 ML 2ML syringe IV PRN (16:35)
[2024-12-01] MEDS: ringers solution, lacted 1,000 ML IV SCH (16:35)
[2024-12-01] MEDS ORDERED: morphine 2 MG/ML inj. syringe IV PRN (16:35)
[2024-12-01] MEDS ORDERED: enalaprilat 1.25mg/ml 2ml vial IV PRN (16:35)
--- NOTE | 2024-12-01 17:31 | PROGRESS NOTE ---
Anesthesia - Line Placement Line Placement CVP: Internal Jugular (Right) Arterial Line: Radial (Left with Ultrasound guidance) Separate "Sticks": Ultrasound Guidance, Vasc Structure Identified, Patency Confirmed, Entry Observed by [place] Sterile Protocol or Technique: Sterile Seldinger tech, Full Sterile Protocol Prep: Chloraprep Complications None GEORGINA DIAZ MD Dec 01, 2024 17:31
--- NOTE | 2024-12-01 17:31 | CONSULTATION REPORT ---
History of Present Illness Providers to CC CC: MOISES HARVEY MD ~ Reason for Admit\Admit Dx: Cardiology consultation History of Present Illness This is a 79-year-old male who presented secondary to cellulitis and necrosis of the foot. 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 He was found to have SFA occlusion on the right and underwent stress testing for preoperative clearance. Stress test was read as reversible inferoseptal defect. TTE with preserved EF and no wall motion abnormalities. Nuclear images reviewed with Dr. Rambo Harvey read as unremarkable. Patient has no chest pain or pressure. No significant shortness for breath or dyspnea on exertion. Ambulated in the halls just prior to my evaluation well with physical therapy. Allergies: Coded Allergies: No Known Allergies (Unverified , 11/29/24) Past Medical History Medical History Comment Atrial fibrillation Coronary artery disease Heart failure Alcohol abuse Past Surgical History Surgical History Comment History of stent Past Social History Social History Comment Quit smoking. Reports alcohol use two shots per day. Physical Exam Last Vital Signs Recorded: RN Vital Signs have been reviewed: Yes, Temperature: 98.1, Source: Temporal, Heart Rate: 97, Respiratory Rate: 18, BP: 122/72, Pulse Oximetry: 97, Weight: 92.720 Physical Exam General: Awake, alert, oriented. No apparent distress Neck: Supple. Normal range of motion. No JVD Respiratory: Lungs are clear to auscultation bilaterally. No respiratory distress. Chest: Normal shape and size. No accessory muscle use. Cardiovascular: Regular rate and rhythm. S1-S2. No murmur, gallop, rub. Extremities: Erythema noted. Left foot in a walking boot. Neurologic: Alert and oriented x4. Nonfocal Psychiatric: Normal mood and affect. Skin: Normal color. Warm and dry. Review of Systems ROS This is a 79-year-old male who presented secondary to SFA occlusion. Denies chest pain or pressure. No significant shortness for breath. No dizziness, lightheadedness or syncope. Complains of leg pain. Otherwise, review of systems negative. Results Echocardiogram Echocardiogram Conclusion LV is normal in size with mild concentric hypertrophy. Overall systolic function is normal. LVEF is 60%. RV appears mildly dilated with normal contractility. RVSP is estimated at 35 mmHG. Moderate biatrial enlargement. Trileaflet AV appears sclerotic without stenosis. No insufficiency. MV is thickened with mild annular calcification and no stenosis. Trace mitral regurgitation. The tricuspid valve is normal in structure. Trace tricuspid regurgitation. The pulmonary valve is normal in structure. Trace pulmonic regurgitation. There is no pericardial effusion. Dictated by:JONELLE SHERMAN MD Dictation date and time:11/29/241742 Electronically Signed by: JONELLE SHERMAN MD Date and Time: 11/29/241742 Cardiac Stress Test Cardiac Stress Test Procedure: NM NM MAAME SCAN Exam Date: 11/30/2024 09:55 AM Reason for study/Clinical History: preop Clearance, hx of Afib Comparison Study: None Myocardial Perfusion Study with SPECT Technique: The patient received an intravenous injection of 8 mCi of technetium-99m sestamibi while at rest. After a short delay, SPECT tomographic images of the heart were obtained. The patient then went to the stress lab where they received an intravenous infusion of 0.4 mg lexiscan utilizing standard protocol. 29.3 mCi of technetium-99m sestamibi was injected intravenously immediately after the start of the lexiscan infusion. Gated SPECT tomographic images of the heart were acquired and processed. Findings: Reversible inferoseptal defect. End diastolic volume: 56 mL End systolic volume: 13 mL The left ventricular ejection fraction is 78 %. (normal greater than 50%) Impression: 1. Reversible inferoseptal defect 2. The left ventricular ejection fraction is 78 %. Electronically Signed by:HELGA RAMSAY MD Date & Time: 11/30/24 1201 Diagram Lab Result Diagram: 12/01/24 0737 12/01/24 0737 Assessment/Plan Additional Plan This is a 79-year-old male who presented with SFA occlusion. Cardiology consultation was requested for cardiovascular clearance. Peripheral arterial disease SFA occlusion Plans for aortobifem with Dr. Joshi Preoperative cardiovascular evaluation Patient without chest pain or pressure. No shortness a breath. Ambulated with physical therapy with no significant symptoms. Stress test read as inferoseptal defect. Reviewed images independently. No significant reversibility. Recommend proceeding with surgical intervention/limb salvage History of coronary artery disease Does not follow with a pick out hand --recommend optimal medical management. Atrial fibrillation with rapid ventricular response We will need anticoagulation on discharge for chads Vasc of 3 (age, vascular dz, ?hx hf) --continue with rate control strategy Case discussed with Dr. Rambo Harvey. For any further cardiology needs please contact him directly. Supervising MD Supervising Physician: EDD Salgado NP Dec 01, 2024 17:31
[2024-12-01] MEDS: iohexol 300 MG/1 ML 50ml polymer IV ONE (17:35)
[2024-12-01 17:38] LABS: APTT 70 SECONDS (22-32)
[2024-12-01] MEDS ORDERED: sugammadex 200mg/2ml injection IV ONE ×2 (18:00→18:30)
--- NOTE | 2024-12-01 18:39 | OPERATIVE REPORT ---
Operative Report Providers to CC ~ Date of Procedure: Dec 01, 2024 Pre-Operative Diagnosis: multilevel pad with decreased ann and nonhealing foot wounds Post-Operative Diagnosis SAME as PRE-Op Procedure Performed left fem-peroneal bypass with composite graft/left assistant professor of [employer] endarterectomy/angio Surgeon: jada vera Anesthesiologist: Thanh Garcia Type of Anesthesia: General Findings: multilevel pad/extensive assistant professor of geography plaque/patent peroneal Estimated Blood Loss: 350 ml Specimen Removed: assistant professor of geography plaque AMITA BOUCHER MD Dec 01, 2024 18:39
[2024-12-01] MEDS: fentaNYL/PF 50MCG/1 ML 2ML syringe IV PRN (18:45)
[2024-12-01] MEDS ORDERED: naloxone 0.4 mg/ml inj IV PRN (18:45)
[2024-12-01] MEDS ORDERED: PCA WASTE DOCUMENTATION 1 MG ML MC SCH (18:45)
[2024-12-01] MEDS ORDERED: HYDROmorphone inj. 0.5 MG/0.5 ML DISP.SYRIN IV PRN (18:45)
[2024-12-01 18:59] LABS: ABG BASE EXCESS -2.4 mmol/L (-2.0-3.0); ABG HCO3 23.9 mmol/L (21.0-28.0); ABG OXYGEN SATURATION 97.7 % (94.0-98.0); ABG PCO2 (T) 45.2 mmHg (35.0-48.0); ABG PH (T) 7.336 (7.350-7.450); ABG PO2 (T) 99.3 mmHg (83.0-108.0); FCOHb 0.7 % (0.5-1.5); FHHb 2.3 % (0.0-5.0); FMetHb 0.1 % (0.0-1.5); FO2Hb 96.9 % (94.0-98.0); MODE Simple Mask; TOTAL HEMOGLOBIN 11.9 G/dl (13.5-17.5)
[2024-12-01 19:19] LABS: BASOPHILS % (AUTO) 0.5 % (0-1); HEMATOCRIT 23.2 % (42.0-52.0); HEMOGLOBIN 7.6 g/dl (14.0-17.9); LYMPHOCYTES # (AUTO) 0.4 X10'3 (1.1-4.8); LYMPHOCYTES % (AUTO) 11.8 % (21-51); MEAN CORPUSCULAR HEMOGLOBIN 32.8 PG (27.0-31.0); MEAN CORPUSCULAR HGB CONC 32.6 g/dL (33.0-36.5); MEAN CORPUSCULAR VOLUME 100.6 FL (78-98); MONOCYTES # (AUTO) 0.1 X10'3 (0-0.9); MONOCYTES % (AUTO) 3.8 % (2-12); NEUTROPHILS # (AUTO) 2.6 X10'3 (1.8-7.7); NEUTROPHILS % (AUTO) 82.9 % (42-75); PLATELET COUNT 101 X10'3 (140-440); RED BLOOD COUNT 2.31 X10'6 (4.70-6.10); RED CELL DISTRIBUTION WIDTH 16.6 % (11.5-14.5); WHITE BLOOD COUNT 3.2 X10'3 (4.5-11.0)
[2024-12-01] MEDS: midazolam 1 mg/ML 2ml injection IV ONE (19:27)
[2024-12-01] MEDS: diltiazem SR 60mg capsule (twice daily) PO SCH (20:00)
[2024-12-01] MEDS: diltiazem-NS 100mg/100ml 100 ML IV SCH (20:53)
--- NOTE | 2024-12-01 22:24 | RADIOLOGY REPORT ---
EXAM: DI CHEST,SINGLE VIEW CLINICAL HISTORY: POST OP TECHNIQUE: Single AP view of the chest WID: COMPARISON: DI CHEST,SINGLE VIEW on DOS: 12/01/24 FINDINGS: Lines and tubes: Right IJ central venous catheter with the tip projecting over the mid SVC. Chest: Cardiomegaly and pulmonary vascular congestion. No pleural effusion, pneumothorax, or consolidation. The osseous structures are grossly intact. Multilevel thoracic spondylosis. IMPRESSION: 1. Cardiomegaly and pulmonary vascular congestion. 2. Right IJ central venous catheter with the tip projecting over the mid SVC.
[2024-12-01] MEDS: morphine 2 MG/ML inj. syringe IV PRN (23:45)
[2024-12-02] VITALS (22 sets, daily range): BP systolic 99–125; BP diastolic 52–79; PULSE 80–121; RESP 11–18; TEMP 97.6–98.1; O2SAT 91–99
[2024-12-02] MEDS: MESSAGE TO NURSING IV ONE ×2 (01:03→11:29)
[2024-12-02 05:22] LABS: ALANINE AMINOTRANSFERASE 15 U/L (12-78); ALBUMIN 2.1 G/DL (3.4-5.0); ALBUMIN/GLOBULIN RATIO 0.6 (1.1-1.5); ALKALINE PHOSPHATASE 98 IU/L (46-116); ANION GAP 9 (8-16); ASPARTATE AMINO TRANSFERASE 18 U/L (10-37); BILIRUBIN,TOTAL 0.5 MG/DL (0.1-1.0); BLOOD UREA NITROGEN 7 MG/DL (7-18); BUN/CREATININE RATIO 6.6 (10.0-20.0); CALCIUM 8.1 MG/DL (8.5-10.1); CHLORIDE 108 MMOL/L (99-107); CREATININE 1.06 MG/DL (0.60-1.10); GLUCOSE 160 MG/DL (70-104); MAGNESIUM 1.6 MG/DL (1.5-2.4); POTASSIUM 4.5 MMOL/L (3.5-5.1); SODIUM 144 MMOL/L (135-145); TOTAL CARBON DIOXIDE 27.1 MMOL/L (24-32); TOTAL PROTEIN 5.7 G/DL (6.4-8.2); eCRCL 69 ML/MIN; eGFR 68 ML/MIN
[2024-12-02 05:27] LABS: BASOPHILS % (AUTO) 0.2 % (0-1); EOSINOPHILS % (AUTO) 0 % (0-6); HEMATOCRIT 33.2 % (42.0-52.0); HEMOGLOBIN 10.9 g/dl (14.0-17.9); LYMPHOCYTES # (AUTO) 0.3 X10'3 (1.1-4.8); LYMPHOCYTES % (AUTO) 4.5 % (21-51); MEAN CORPUSCULAR HEMOGLOBIN 32.8 PG (27.0-31.0); MEAN CORPUSCULAR HGB CONC 32.8 g/dL (33.0-36.5); MEAN PLATELET VOLUME 8.1 FL (7.4-10.4); MONOCYTES # (AUTO) 0.2 X10'3 (0-0.9); MONOCYTES % (AUTO) 3.2 % (2-12); NEUTROPHILS # (AUTO) 5.5 X10'3 (1.8-7.7); NEUTROPHILS % (AUTO) 92.1 % (42-75); PLATELET COUNT 153 X10'3 (140-440); RED BLOOD COUNT 3.32 X10'6 (4.70-6.10); RED CELL DISTRIBUTION WIDTH 16.9 % (11.5-14.5); WHITE BLOOD COUNT 5.9 X10'3 (4.5-11.0)
--- NOTE | 2024-12-02 05:33 | OPERATIVE REPORT ---
DATE OF SURGERY: 12/01/2024 DICTATING PHYSICIAN: Aneudy Joshi MD PREOPERATIVE DIAGNOSES: Multilevel peripheral vascular disease, left lower extremity with diminished ISIDORO. Nonhealing wounds, left foot. POSTOPERATIVE DIAGNOSES: Multilevel peripheral vascular disease, left lower extremity with diminished ISIDORO. Nonhealing wounds, left foot. PROCEDURES PERFORMED: * Left femoral and tibial bypass using composite graft. * Last common femoral endarterectomy. * Intraoperative angiogram. SURGEON: Aneudy Joshi MD ATTENDING UROLOGIST: Matthew. ANESTHESIA: General/Dr. Garcia. DRAINS: None. INDICATIONS FOR OPERATION: A 79-year-old male with history of AFib, coronary artery disease, was seen at [facility] with nonhealing wounds to the left foot as well as superficial skin necrosis, found to have multilevel disease, transferred to [facility] for subsequent workout and possible bypass. INTRAOPERATIVE FINDINGS: The patient had multilevel disease with extensive plaque in the common femoral, like calcification in it, but had good flow by angio post bypass. DESCRIPTION OF PROCEDURE: The patient was placed supine on the operating room table. After induction of general anesthesia and placement of endotracheal tube, the abdomen was prepped and draped. Incision was made in the medial aspect of the calf and extended through the subcutaneous fat and fascia. The The peroneus was subsequently identified. Peroneal was subsequently isolated just distal to a large branch. It was relatively soft at that point, had some calcification distally. Attention was then turned to the left groin and longitudinal incision has been made, common femoral, SFA subsequently isolated. A short segment of the greater saphenous vein was harvested composite graft. Tunnel was then created from the right calf to the left groin. A taper graft Weston-Quinn graft passed. The patient was maintained on heparin drip. The vein was then reversed and the end-to-end anastomosis was constructed between the Weston-Quinn and the vein using running suture of 6-0 Prolene. Graft flushed easily. Attention was then turned to the perineal, which was occluded proximally and distally. Incision was then made proximally and distally. The end-to-side anastomosis was constructed with running suture of 6-0 Prolene. Graft flushed well. Attention was then turned to the left groin where the graft was then trimmed to length. Common femoral was occluded proximally and distally as well as the profunda. Incision was then made. The patient had extensive plaque in the common femoral. Endarterectomy of the common femoral was then performed. The patient had good inflow post endarterectomy. Graft was then trimmed to length and an end-to-side anastomosis was conducted with running suture of 5-0 Prolene. Flow was then reestablished to the graft. The patient has excellent flow by Doppler. Angiogram was then performed. A A #18 Jelco was placed in the graft proximally. Angiogram was performed and has patent peroneal to the ankle. Hemostasis was then obtained. Wound was irrigated with large amount of antibiotic-containing solution and subsequently closed in layers. Skin was closed with clips. Prevena place and dressing applied. The patient was transferred to recovery in stable condition. Aneudy Joshi MD TID: [id number] RECEIPT: [id number] ANGELLA/LUIS/SARIKA
--- NOTE | 2024-12-02 06:12 | CONSULTATION ---
DATE OF CONSULTATION: 11/29/2024 DICTATING PHYSICIAN: Aneudy Joshi MD REASON FOR CONSULTATION: Evaluation of extremity. HISTORY OF PRESENT ILLNESS: The patient is a 79-year-old male transferred from [facility] with left foot nonhealing wounds and infection. Surgical evaluation now requested as the patient is noted to have multilevel peripheral vascular disease. On further questioning, the patient has had wounds in the foot, which he sustained after a fall a few weeks ago. Developed erythema and superficial wound necrosis. Workup revealed multilevel disease. Surgical evaluation now requested. On further questioning, complains of rest pain. No previous vascular interventions. The patient denies history of tobacco use. He does have a history of atrial fibrillation, for which he takes Eliquis. PAST MEDICAL HISTORY: Atrial fibrillation; coronary artery disease, status post stent placement? heart failure. PAST SURGICAL HISTORY: Cardiac stent. HOME MEDICATIONS: Include Eliquis. ALLERGIES: None. SOCIAL HISTORY: daily alcohol use. REVIEW OF SYSTEMS: See H and P. PHYSICAL EXAMINATION: GENERAL: A well-nourished elderly male, in minimal distress. VITAL SIGNS: Unremarkable. HEART: Reveals regular rate and rhythm. LUNGS: Clear to auscultation. ABDOMEN: Benign. EXTREMITIES: Left lower extremity, there are some multiple areas of erythema and necrosis involving the left foot. Pedal pulses are diminished. Right foot also has diminished pedal pulses, but no erythema or skin necrosis. NEUROLOGIC: Shows no lateralizing signs. plate in the right jaw. LABORATORY DATA: Labs include WBC 6, hematocrit of 43, platelet counts of 104. PT is 10, INR is 1, PTT is 30. IMAGING STUDIES: CTA reveals bilateral multilevel disease. IMPRESSION: * Cellulitis with areas of skin necrosis of the left lower extremity, likely secondary to multilevel peripheral vascular disease. * status post stent placement. * History of atrial fibrillation. * History of systolic heart failure. * History of alcohol use. RECOMMENDATIONS: * Admit. * Heparin. * IV antibiotics. * Workup for possible bypass. Aneudy Joshi MD TID: [id number] RECEIPT: [id number] KB/AGUSTO/USHA
--- NOTE | 2024-12-02 06:25 | CONSULTATION ---
DATE OF CONSULTATION: 12/01/2024 DICTATING PHYSICIAN: Marcos Hahn MD REASON FOR CONSULTATION: I am seeing the patient at the request of FLORIAN Murphy, for evaluation of cellulitis involving the distal left lower extremity with evidence of gangrene in the setting of peripheral arterial disease. HISTORY OF PRESENT ILLNESS: The patient is a 79-year-old male who was admitted to this facility back on 11/29 after being transferred from [facility] for evaluation of gangrene due to significant peripheral arterial disease. It appears that he does take anticoagulation at baseline for atrial fibrillation. He states that he had a recent fall and sustained some soft tissue injuries at the left foot. CT angiogram did reveal extensive atherosclerotic disease. There was complete or near-complete occlusion of the distal left superficial femoral artery. There was flow demonstrated at the left foot via the peroneal artery. He was placed on Zosyn when he came into the hospital. White blood cell count is not elevated and he does not have fever. He does report some pain at the left foot. He was seen by Dr. Joshi who was planning to take him to the operating room when I saw him earlier today. At the time of this dictation, it does appear that he went to the operating room for left femoral to peroneal bypass using a Composite graft. He did require left common femoral artery endarterectomy. PAST MEDICAL HISTORY: * Peripheral arterial disease. * Coronary artery disease with a history of percutaneous coronary intervention. * CHF. * Atrial fibrillation. * Mandible fracture related to extraction of tooth. 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 PAST SURGICAL HISTORY: Surgical repair of mandible fracture with chronic right external fixation device. ALLERGIES: None. MEDICATIONS: * Zosyn. * Amiodarone. * Atorvastatin. * Clopidogrel. * Diltiazem. * Colace. * Folate. * Multivitamin. * Thiamine. FAMILY HISTORY: Noncontributory. SOCIAL HISTORY: He is followed by the [facility]. He lives in [place]. He does drink alcohol. He does not smoke. PHYSICAL EXAMINATION: VITAL SIGNS: He is afebrile with stable vital signs. GENERAL: He is a pleasant elderly male, sitting up in bed, looking stable. HEENT: Sclerae anicteric. He does have an external fixation device at the right mandibular area. LUNGS: Clear to auscultation bilaterally. HEART: Irregularly irregular with a normal rate. ABDOMEN: Soft, nontender, and nondistended. EXTREMITIES: He does not have significant edema. The right lower extremity appears to be perfused. At the distal left lower extremity, he does have erythema involving the foot. He has gangrenous changes involving the fourth and fifth toes, as well as some of the lateral soft tissue. He has another area of gangrenous change medially, extending to the dorsal aspect. LABORATORY DATA: His white blood cell count is 4900, hemoglobin 11.7, platelets 161,000. Creatinine 1.1. MRSA screen is negative. Blood cultures were not done. He did have an echocardiogram that actually showed a normal ejection fraction. IMPRESSION: Cellulitis of distal left lower extremity with gangrenous changes in the setting of severe peripheral arterial disease. He did demonstrate occlusion of the superficial femoral artery and he has now undergone left femoral to peroneal bypass. There is no evidence of MRSA at this time. RECOMMENDATIONS: I do think he can continue with Zosyn monotherapy for now. I will pay close attention to his left foot to ensure that his cellulitis is resolving. He will need appropriate wound care moving forward to deal with the gangrenous changes at the left foot. Hopefully, he can establish good healing and avoid any significant amputation. I will continue to follow the patient closely and I thank you for allowing me to participate in his care. Marcos Hahn MD TID: [id number] RECEIPT: [id number] JP/JOHAN
[2024-12-02] MEDS: clopidogrel 75mg tablet PO SCH (08:00)
[2024-12-02] MEDS: diltiazem 30mg tablet PO SCH (08:59)
[2024-12-02] MEDS ORDERED: apixaban 5mg tablet PO SCH (12:10)
--- NOTE | 2024-12-02 12:38 | PROGRESS NOTE ---
Progress Note ID Providers to CC ~ Progress Note Progress Note: DOING WELL/START AMITA ROCKWELL MD Dec 02, 2024 12:38
--- NOTE | 2024-12-02 13:36 | PROGRESS NOTE ---
Daily Progress Note Providers to CC ~ Antibiotic Timeout Antibiotic Ordered?: Yes Subjective No acute events overnight. Patient examined at bedside. No new complaints, not in acute distress. Patient denies chest pain, sob, palpitations, abdominal pain, n/v/d. s/p left femoral and tibial bypass and last common femoral endarterectomy on 12/01/24. Heparin discontinued, started on Eliquis. Vss, labs unremarkable. Afib controlled rate. Patient is clinically and hemodynamically stable. Objective Vital Signs Date Time Temp Pulse Resp B/P (MAP) Pulse Ox O2 Delivery O2 Flow Rate FiO2 12/02/24 12:00 98.1 94 16 109/68 (82) 95 Nasal Cannula 2.0 12/02/24 07:27 28 Result Diagram: 12/02/2442012/02/24420 Physical Exam General: Generalized weakness, A&Ox 3, NAD HEENT: Normocephalic, PERRLA Neck: Supple, trachea midline, no JVD Chest: Clear to auscultation bilaterally Cardiovascular: IRIR Abdomen: Soft and nontender Extremities: +1 Edema of left foot, erythematous left foot, tenderness of left foot with palpation Central Nervous System: CN II-XII intact, no focal deficits Musculoskeletal: No paraspinal muscle tenderness, no muscle spasm Skin: Necrosis of dorsum of left foot and 1st&4th&5th phalanx of left foot, necrosis of lateral left foot Coagulation Studies Laboratory Tests Test 11/29/24 06:46 12/01/24 17:00 12/02/24 07:10 Prothrombin Time 10.4 SECONDS (9.0-12.0) INR International Normalized Ratio 1.0 INR Activated Partial Thromboplast Time 70 SECONDS (22-32) *H APTT (Heparin Protocol) 64 SECONDS (45-75) Coagulation Comments Problem\Assessment\Plan # PAD # SFA occlusion, b/l LE # Cellulitis, left foot # Sepsis 2/2 cellulitis # Aortic aneurysm, 3.5cm -At transferring facility: PT INR 1.12 PTT 33 creatinine 1.37 GFR 53 CRP 162 magnesium 2.1 lactic acid 2.49 normalized to 1.3, procal 2.2, WBC 8.8 CT extremity left with IV contrast no fracture no dislocation or cortical destruction mild lateral soft tissue swelling in the left ankle ultrasound artery bilateral right SFA occlusion monophasic waveforms throughout the left lower extremity no flow in the mid and distal posterior femoral artery -CTA w/runoff revealing complete occlusion of the right SFA at its proximal aspect extending to the mid popliteal level and complete or near complete occlusion of the distal left SFA, infrarenal abdominal aortic aneurysm 3.3x3.5cm -start heparin drip, IVF, abx; consulted surgeon Dr. Joshi and ID Dr. Hahn; follow Lexiscan -11/30: Angiogram by IR. Bain shows reversible inferoseptal defect. -12/01: penology professor Dr. Rambo Harvey consulted, given cardiac clearance for surgery as stress test is evaluated to be unremarkable. OR today. -12/02: s/p left femoral and tibial bypass and last common femoral endarterectomy on 12/01/24. Heparin discontinued, started on Eliquis. # Atrial fibrillation w/ RVR -lytes wnl, no hypoxia, not controlled with initially given metoprolol tart IV, start Cardizem drip LVEF 60% start prn metoprolol tart, start oral amiodarone; pending med rec -follow TTE, TSH/T4 -11/30: TSH/T4, lytes wnl. Afib controlled rate on diltiazem drip and oral amiodraone. LVEF 60% without significant VHD. -12/01: afib controlled rate, diltiazem drip transitioned to oral diltiazem. # Prerenal MATILDE 2/2 vasomotor nephropathy -start IVF, follow labs # CAD s/p cardiac stent (>5 years ago) # Chronic systolic heart failure -pending med rec # Alcohol abuse -mild alcohol withdrawal protocol, thiamine, folic acid Date of Service: Dec 02, 2024 Billing Provider: NAPOLEON THOMPSON Common Visit Codes: [id number] INP/OBS CARE(HIGH) NAPOLEON THOMPSON Dec 02, 2024 13:36
[2024-12-02] MEDS ORDERED: CLOP75TA34 PO (14:50)
[2024-12-02] MEDS ORDERED: APIX5TAB3 PO (14:50)
[2024-12-02] MEDS ORDERED: METO-467 PO (14:50)
[2024-12-02] MEDS ORDERED: CHOLESTEROL MED (14:54)
[2024-12-02] MEDS: HYDROcodone/acetaminophen 10/325mg tab PO PRN (16:18)
[2024-12-02] MEDS: apixaban 5mg tablet PO SCH (20:49)
[2024-12-03] VITALS (10 sets, daily range): BP systolic 103–138; BP diastolic 65–89; PULSE 81–100; RESP 12–21; TEMP 96.8–98.6; O2SAT 93–98
[2024-12-03 06:32] LABS: BASOPHILS % (AUTO) 0.2 % (0-1); EOSINOPHILS % (AUTO) 0 % (0-6); HEMOGLOBIN 10.8 g/dl (14.0-17.9); LYMPHOCYTES # (AUTO) 0.4 X10'3 (1.1-4.8); LYMPHOCYTES % (AUTO) 5.1 % (21-51); MEAN CORPUSCULAR HEMOGLOBIN 32.6 PG (27.0-31.0); MEAN CORPUSCULAR HGB CONC 32.7 g/dL (33.0-36.5); MEAN CORPUSCULAR VOLUME 99.6 FL (78-98); MEAN PLATELET VOLUME 8.4 FL (7.4-10.4); MONOCYTES # (AUTO) 0.6 X10'3 (0-0.9); MONOCYTES % (AUTO) 7.3 % (2-12); NEUTROPHILS # (AUTO) 7.1 X10'3 (1.8-7.7); NEUTROPHILS % (AUTO) 87.4 % (42-75); PLATELET COUNT 171 X10'3 (140-440); RED BLOOD COUNT 3.31 X10'6 (4.70-6.10); RED CELL DISTRIBUTION WIDTH 16.6 % (11.5-14.5); WHITE BLOOD COUNT 8.1 X10'3 (4.5-11.0)
[2024-12-03 07:46] LABS: ALANINE AMINOTRANSFERASE 15 U/L (12-78); ALBUMIN 2.1 G/DL (3.4-5.0); ALBUMIN/GLOBULIN RATIO 0.6 (1.1-1.5); ALKALINE PHOSPHATASE 85 IU/L (46-116); ANION GAP 5 (8-16); ASPARTATE AMINO TRANSFERASE 15 U/L (10-37); BILIRUBIN,TOTAL 0.4 MG/DL (0.1-1.0); BLOOD UREA NITROGEN 12 MG/DL (7-18); BUN/CREATININE RATIO 10.3 (10.0-20.0); CALCIUM 8.2 MG/DL (8.5-10.1); CHLORIDE 107 MMOL/L (99-107); CREATININE 1.16 MG/DL (0.60-1.10); GLUCOSE 173 MG/DL (70-104); MAGNESIUM 1.8 MG/DL (1.5-2.4); POTASSIUM 4.5 MMOL/L (3.5-5.1); SODIUM 141 MMOL/L (135-145); TOTAL CARBON DIOXIDE 29.5 MMOL/L (24-32); TOTAL PROTEIN 5.7 G/DL (6.4-8.2); eCRCL 63 ML/MIN; eGFR 61 ML/MIN
--- NOTE | 2024-12-03 11:00 | PROGRESS NOTE ---
Progress Note ID Providers to CC ~ Progress Note Progress Note: complains of pain/vss/lle well perfused/labs noted a/p 1. s/p fem distal bypass-doing well/cont pt AMITA BOUCHER MD Dec 03, 2024 11:00
--- NOTE | 2024-12-03 12:21 | PROGRESS NOTE ---
Daily Progress Note Providers to CC ~ Antibiotic Timeout Antibiotic Ordered?: Yes Subjective No acute events overnight. Patient examined at bedside. No new complaints, not in acute distress. Patient denies chest pain, sob, palpitations, abdominal pain, n/v/d. s/p left femoral and tibial bypass and last common femoral endarterectomy on 12/01/24. Heparin discontinued, started on Eliquis. Vss, labs unremarkable. Afib controlled rate. Patient is clinically and hemodynamically stable. Objective Vital Signs Date Time Temp Pulse Resp B/P (MAP) Pulse Ox O2 Delivery O2 Flow Rate FiO2 12/03/24 08:00 18 96 Nasal Cannula 2.0 12/03/24 06:00 93 12/03/24 06:00 96.8 108/68 (81) 12/02/24 07:27 28 Result Diagram: 12/03/24 0544 12/03/24 0544 Physical Exam General: Generalized weakness, A&Ox 3, NAD HEENT: Normocephalic, PERRLA Neck: Supple, trachea midline, no JVD Chest: Clear to auscultation bilaterally Cardiovascular: IRIR Abdomen: Soft and nontender Extremities: s/p fem-peroneal bypass, medial incision closed no s/s infection Central Nervous System: CN II-XII intact, no focal deficits Musculoskeletal: No paraspinal muscle tenderness, no muscle spasm Skin: Necrosis of dorsum of left foot and 1st&4th&5th phalanx of left foot, necrosis of lateral left foot Coagulation Studies Laboratory Tests Test 11/29/24 06:46 12/01/24 17:00 12/02/24 07:10 Prothrombin Time 10.4 SECONDS (9.0-12.0) INR International Normalized Ratio 1.0 INR Activated Partial Thromboplast Time 70 SECONDS (22-32) *H APTT (Heparin Protocol) 64 SECONDS (45-75) Coagulation Comments Problem\Assessment\Plan # PAD # SFA occlusion, b/l LE # Cellulitis, left foot # Sepsis 2/2 cellulitis # Aortic aneurysm, 3.5cm -At transferring facility: PT INR 1.12 PTT 33 creatinine 1.37 GFR 53 CRP 162 magnesium 2.1 lactic acid 2.49 normalized to 1.3, procal 2.2, WBC 8.8 CT extremity left with IV contrast no fracture no dislocation or cortical destruction mild lateral soft tissue swelling in the left ankle ultrasound artery bilateral right SFA occlusion monophasic waveforms throughout the left lower extremity no flow in the mid and distal posterior femoral artery -CTA w/runoff revealing complete occlusion of the right SFA at its proximal aspect extending to the mid popliteal level and complete or near complete occlusion of the distal left SFA, infrarenal abdominal aortic aneurysm 3.3x3.5cm -start heparin drip, IVF, abx; consulted surgeon Dr. Joshi and ID Dr. Hahn; follow Lexiscchace -11/30: Angiogram by IR. Bain shows reversible inferoseptal defect. -12/01: communications analyst Dr. Rambo Harvey consulted, given cardiac clearance for surgery as stress test is evaluated to be unremarkable. OR today. -12/02: s/p left femoral and tibial bypass and last common femoral endarterectomy on 12/01/24. Heparin discontinued, started on Eliquis. -12/03: pending rehab, continue PT # Atrial fibrillation w/ RVR -lytes wnl, no hypoxia, not controlled with initially given metoprolol tart IV, start Cardizem drip LVEF 60% start prn metoprolol tart, start oral amiodarone; pending med rec -follow TTE, TSH/T4 -11/30: TSH/T4, lytes wnl. Afib controlled rate on diltiazem drip and oral amiodraone. LVEF 60% without significant VHD. -12/01: afib controlled rate, diltiazem drip transitioned to oral diltiazem. # Prerenal MATILDE 2/2 vasomotor nephropathy -start IVF, follow labs # CAD s/p cardiac stent (>5 years ago) # Chronic systolic heart failure -pending med rec # Alcohol abuse -mild alcohol withdrawal protocol, thiamine, folic acid Date of Service: Dec 03, 2024 Billing Provider: NAPOLEON THOMPSON Common Visit Codes: [id number] INP/OBS CARE(HIGH) NAPOLEON THOMPSON Dec 03, 2024 12:21
[2024-12-03] MEDS: HYDROcodone/acetaminophen 10/325mg tab PO PRN (22:36)
[2024-12-04] VITALS (8 sets, daily range): BP systolic 97–128; BP diastolic 48–87; PULSE 72–124; RESP 12–20; TEMP 97.5–98; O2SAT 93–97
[2024-12-04 06:51] LABS: BASOPHILS % (AUTO) 0.2 % (0-1); EOSINOPHILS # (AUTO) 0.1 X10'3 (0-0.9); EOSINOPHILS % (AUTO) 1.7 % (0-6); HEMATOCRIT 37.5 % (42.0-52.0); HEMOGLOBIN 12.3 g/dl (14.0-17.9); LYMPHOCYTES # (AUTO) 0.8 X10'3 (1.1-4.8); LYMPHOCYTES % (AUTO) 8.6 % (21-51); MEAN CORPUSCULAR HEMOGLOBIN 32.5 PG (27.0-31.0); MEAN CORPUSCULAR HGB CONC 32.7 g/dL (33.0-36.5); MEAN CORPUSCULAR VOLUME 99.3 FL (78-98); MONOCYTES # (AUTO) 0.7 X10'3 (0-0.9); MONOCYTES % (AUTO) 8.4 % (2-12); NEUTROPHILS # (AUTO) 7.1 X10'3 (1.8-7.7); NEUTROPHILS % (AUTO) 81.1 % (42-75); PLATELET COUNT 204 X10'3 (140-440); RED BLOOD COUNT 3.77 X10'6 (4.70-6.10); RED CELL DISTRIBUTION WIDTH 16.7 % (11.5-14.5); WHITE BLOOD COUNT 8.8 X10'3 (4.5-11.0)
[2024-12-04 07:02] LABS: ALANINE AMINOTRANSFERASE 11 U/L (12-78); ALBUMIN 2.4 G/DL (3.4-5.0); ALBUMIN/GLOBULIN RATIO 0.6 (1.1-1.5); ALKALINE PHOSPHATASE 99 IU/L (46-116); ANION GAP 10 (8-16); ASPARTATE AMINO TRANSFERASE 16 U/L (10-37); BILIRUBIN,TOTAL 0.5 MG/DL (0.1-1.0); BLOOD UREA NITROGEN 12 MG/DL (7-18); CALCIUM 8.8 MG/DL (8.5-10.1); CHLORIDE 108 MMOL/L (99-107); CREATININE 1.33 MG/DL (0.60-1.10); GLUCOSE 143 MG/DL (70-104); POTASSIUM 4.1 MMOL/L (3.5-5.1); SODIUM 146 MMOL/L (135-145); TOTAL CARBON DIOXIDE 28.1 MMOL/L (24-32); TOTAL PROTEIN 6.6 G/DL (6.4-8.2); eCRCL 55 ML/MIN; eGFR 52 ML/MIN
[2024-12-04] MEDS: digoxin 250mcg/ml 2ml ampule IV STA (08:59)
[2024-12-04] MEDS: ringers solution, lacted 1,000 ML IV SCH (09:01)
[2024-12-04 09:04] LABS: TOTAL CELLS COUNTED 100
[2024-12-04 09:05] LABS: ANISOCYTOSIS 1+; PLATELET ESTIMATE NORMAL; POLYCHROMASIA FEW
[2024-12-04] MEDS ORDERED: glucagon, human recombinant 1mg kit SUBCUT PRN (12:05)
[2024-12-04] MEDS ORDERED: dextrose 50%-water 50ml dispensing syringe IV PRN ×2 (12:05)
[2024-12-04] MEDS ORDERED: DEXTROSE 15 GM of carb/4 tabs (each vial/BOTTLE has 4 tablets) PO PRN ×2 (12:05)
[2024-12-04] MEDS: metoprolol tartrate 1mg/ml inj IV ONE (12:08)
--- NOTE | 2024-12-04 12:11 | PROGRESS NOTE ---
Daily Progress Note Providers to CC ~ Antibiotic Timeout Antibiotic Ordered?: Yes If Yes, Indications: Cellulitis Subjective No acute events overnight. Patient examined at bedside. No new complaints, not in acute distress. Patient denies chest pain, sob, palpitations, abdominal pain, n/v/d. s/p left femoral and tibial bypass and last common femoral endarterectomy on 12/01/24. Vss, labs notable for slightly uptrended Cr, negative fluid balance of 2500ml. Tele afib w/ RVR in 120s-130s, controlled after IV digoxin. Continued on oral diltiazem and po metoprolol tart started. Patient is clinically and hemodynamically stable. Objective Vital Signs Date Time Temp Pulse Resp B/P (MAP) Pulse Ox O2 Delivery O2 Flow Rate FiO2 12/04/24 11:00 97.7 108 16 128/77 (94) 97 Room Air 12/03/24 17:44 0.0 95 Result Diagram: 12/04/24 0609 12/04/24 0609 Physical Exam General: Generalized weakness, A&Ox 3, NAD HEENT: Normocephalic, PERRLA Neck: Supple, trachea midline, no JVD Chest: Clear to auscultation bilaterally Cardiovascular: IRIR Abdomen: Soft and nontender Extremities: s/p fem-peroneal bypass, medial incision closed no s/s infection Central Nervous System: CN II-XII intact, no focal deficits Musculoskeletal: No paraspinal muscle tenderness, no muscle spasm Skin: Necrosis of dorsum of left foot and 1st&4th&5th phalanx of left foot, necrosis of lateral left foot Coagulation Studies Laboratory Tests Test 11/29/24 06:46 12/01/24 17:00 12/02/24 07:10 Prothrombin Time 10.4 SECONDS (9.0-12.0) INR International Normalized Ratio 1.0 INR Activated Partial Thromboplast Time 70 SECONDS (22-32) *H APTT (Heparin Protocol) 64 SECONDS (45-75) Coagulation Comments Problem\Assessment\Plan # PAD # SFA occlusion, b/l LE # Cellulitis, left foot # Sepsis 2/2 cellulitis # Aortic aneurysm, 3.5cm -At transferring facility: PT INR 1.12 PTT 33 creatinine 1.37 GFR 53 CRP 162 magnesium 2.1 lactic acid 2.49 normalized to 1.3, procal 2.2, WBC 8.8 CT extremity left with IV contrast no fracture no dislocation or cortical destruction mild lateral soft tissue swelling in the left ankle ultrasound artery bilateral right SFA occlusion monophasic waveforms throughout the left lower extremity no flow in the mid and distal posterior femoral artery -CTA w/runoff revealing complete occlusion of the right SFA at its proximal aspect extending to the mid popliteal level and complete or near complete occlusion of the distal left SFA, infrarenal abdominal aortic aneurysm 3.3x3.5cm -start heparin drip, IVF, abx; consulted surgeon Dr. Joshi and ID Dr. Hahn; follow Lexiscan -11/30: Angiogram by IR. Bain shows reversible inferoseptal defect. -12/01: brass molder helper Dr. Rambo Harvey consulted, given cardiac clearance for surgery as stress test is evaluated to be unremarkable. OR today. -12/02: s/p left femoral and tibial bypass and last common femoral endarterectomy on 12/01/24. Heparin discontinued, started on Eliquis. -12/03: pending rehab, continue PT -12/04: Tele afib w/ RVR in 120s-130s, controlled after IV digoxin. Continued on oral diltiazem and po metoprolol tart started. # Atrial fibrillation w/ RVR -lytes wnl, no hypoxia, not controlled with initially given metoprolol tart IV, start Cardizem drip LVEF 60% start prn metoprolol tart, start oral amiodarone; pending med rec -follow TTE, TSH/T4 -11/30: TSH/T4, lytes wnl. Afib controlled rate on diltiazem drip and oral amiodraone. LVEF 60% without significant VHD. -12/01: afib controlled rate, diltiazem drip transitioned to oral diltiazem. # Prerenal MATILDE 2/2 vasomotor nephropathy -start IVF, follow labs -12/04: resume IVF # CAD s/p cardiac stent (>5 years ago) # Chronic systolic heart failure -pending med rec # Alcohol abuse -mild alcohol withdrawal protocol, thiamine, folic acid Date of Service: Dec 04, 2024 Billing Provider: NAPOLEON THOMPSON Common Visit Codes: [id number] INP/OBS CARE(HIGH) NAPOLEON THOMPSON Dec 04, 2024 12:11
--- NOTE | 2024-12-04 14:46 | PROGRESS NOTE ---
Progress Note Dictate Providers to CC ~ Subjective Subjective: He is stable in the postoperative setting. He did undergo bypass from the femoral artery to lower leg. He states that he is unaware if he is going to rehab or not[place] Objective Objective: GENERAL: He is a pleasant elderly male, sitting up in bed, looking stable. HEENT: He does have an external fixation device at the right mandibular area. LUNGS: Clear to auscultation bilaterally. HEART: Irregularly irregular with a normal rate. ABDOMEN: Soft, nontender, and nondistended. EXTREMITIES: He does not have significant edema. The right lower extremity appears to be perfused. At the distal left lower extremity, he does have mild erythema involving the foot. He has gangrenous changes involving the fourth and fifth toes, as well as some of the lateral soft tissue. He has another area of gangrenous change medially, extending to the dorsal aspect. Lab Results: 12/04/24 0609 12/04/24 0609 Problem\Assessment\Plan Additional Plan Cellulitis of distal left lower extremity with gangrenous changes in the setting of severe peripheral arterial disease. Occlusion of SFA s/p left femoral to lower leg bypass. Continue Zosyn Wound care Possible rehab placement Antibiotics can be altered if needed CHACORTA ORTEGA MD Dec 04, 2024 14:46
--- NOTE | 2024-12-04 15:49 | PROGRESS NOTE ---
Progress Note ID Providers to CC ~ Progress Note Progress Note: pain improving/vss/LLE well perfused/labs noted a/p 1. s/p LLE bypass-doing well/cont eliquis adn antibx AMITA BOUCHER MD Dec 04, 2024 15:49
[2024-12-04] MEDS: INSULIN LISPRO 100 UNIT/ML INSULN.PEN MULTI-DOSE SQ SCH (17:00)
[2024-12-04] MEDS: JUVEN Shake w/Arg/Glut/Ca2+Bmb (Juven 19.3gm) pkt 240ml PO SCH (17:30)
[2024-12-04] MEDS: amiodarone 200mg tablet PO SCH (19:10)
[2024-12-04] MEDS: metoprolol tartrate 12.5mg (1/2 tablet) PO SCH (19:11)
[2024-12-05] VITALS (8 sets, daily range): BP systolic 111–142; BP diastolic 62–72; PULSE 61–82; RESP 12–18; TEMP 96.7–98.2; O2SAT 94–99
[2024-12-05 06:03] LABS: BASOPHILS % (AUTO) 0.4 % (0-1); EOSINOPHILS # (AUTO) 0.3 X10'3 (0-0.9); EOSINOPHILS % (AUTO) 4.9 % (0-6); HEMATOCRIT 30.6 % (42.0-52.0); HEMOGLOBIN 10.1 g/dl (14.0-17.9); LYMPHOCYTES # (AUTO) 0.6 X10'3 (1.1-4.8); LYMPHOCYTES % (AUTO) 10.5 % (21-51); MEAN CORPUSCULAR HEMOGLOBIN 32.7 PG (27.0-31.0); MEAN CORPUSCULAR VOLUME 99.1 FL (78-98); MEAN PLATELET VOLUME 8.2 FL (7.4-10.4); MONOCYTES # (AUTO) 0.6 X10'3 (0-0.9); MONOCYTES % (AUTO) 9.6 % (2-12); NEUTROPHILS # (AUTO) 4.5 X10'3 (1.8-7.7); NEUTROPHILS % (AUTO) 74.6 % (42-75); PLATELET COUNT 180 X10'3 (140-440); RED BLOOD COUNT 3.09 X10'6 (4.70-6.10); RED CELL DISTRIBUTION WIDTH 16.2 % (11.5-14.5); WHITE BLOOD COUNT 6.1 X10'3 (4.5-11.0)
[2024-12-05 06:20] LABS: ALANINE AMINOTRANSFERASE 17 U/L (12-78); ALBUMIN 1.9 G/DL (3.4-5.0); ALBUMIN/GLOBULIN RATIO 0.5 (1.1-1.5); ALKALINE PHOSPHATASE 77 IU/L (46-116); ANION GAP 5 (8-16); ASPARTATE AMINO TRANSFERASE 22 U/L (10-37); BILIRUBIN,TOTAL 0.4 MG/DL (0.1-1.0); BLOOD UREA NITROGEN 14 MG/DL (7-18); CALCIUM 8.1 MG/DL (8.5-10.1); CHLORIDE 106 MMOL/L (99-107); CREATININE 1.27 MG/DL (0.60-1.10); GLUCOSE 127 MG/DL (70-104); POTASSIUM 3.9 MMOL/L (3.5-5.1); SODIUM 142 MMOL/L (135-145); TOTAL CARBON DIOXIDE 30.9 MMOL/L (24-32); TOTAL PROTEIN 5.4 G/DL (6.4-8.2); eCRCL 57 ML/MIN; eGFR 55 ML/MIN
--- NOTE | 2024-12-05 11:17 | RADIOLOGY REPORT ---
C-ARM FLUOROSCOPY: PROCEDURE: Left femoral distal bypass run off FLUOROSCOPY TIME: 21.3 sec DAP: 1.64 mgy FINDINGS: Spot intraoperative C arm radiographs demonstrating Left femoral distal bypass run off . IMPRESSION: Please refer to surgical report for detailed findings.
[2024-12-05] MEDS ORDERED: mineral oil 133ml enema RC PRN (16:30)
--- NOTE | 2024-12-05 16:53 | PATHOLOGY REPORT ---
[facility] [address] [place] [address] SURGICAL PATHOLOGY REPORT CaseNumber: [id number] Surgeon:Tessy Ware CLINICAL INFORMATION CLINICAL INFORMATION: Plaque. DIAGNOSIS DIAGNOSIS: ARTERY, LEFT COMMON FEMORAL; ENDARTERECTOMY - ATHEROSCLEROTIC PLAQUE, GROSSLY IDENTIFIED. MICROSCOPIC DESCRIPTION MICROSCOPIC DESCRIPTION: Not performed. GROSS DESCRIPTION GROSS DESCRIPTION: Received in a container of formalin labeled with the patient's name, number, and " common femoral plaque" is a 4 cm aggregate of irregularly shaped pieces of moderately calcified ather osclerotic cast. A thrombus is not identified. No sections. Electronically signed by: Vasquez Davidson M.D. 12/05/2024 4:15:00 PM
--- NOTE | 2024-12-05 17:10 | PROGRESS NOTE ---
Progress Note ID Providers to CC ~ Progress Note Progress Note: minimal pain/vss/LLE well perfused/labs noted a/p 1. s/p LLE bypass-doing well/ok for rehab AMITA BOUCHER MD Dec 05, 2024 17:10
[2024-12-05] MEDS: lactulose 20gm/30ml cup PO ONE (17:53)
[2024-12-05] MEDS: mag hydrox/Alum hydrox/simeth 30ml oral suspension PO PRN (17:53)
[2024-12-05] MEDS: magnesium citrate 296ml oral solution PO ONE (18:49)
[2024-12-05] MEDS: polyethylene glycol 3350 17gm powd pack PO SCH (20:04)
--- NOTE | 2024-12-05 20:43 | PROGRESS NOTE ---
Daily Progress Note Providers to CC ~ no new complaint today resting comfortably in the bed Central Line/PICC still needed: No Pinto-Non Protocol Pinto Indications Met/Not Met: F/C Indications Not Met Antibiotic Timeout Antibiotic Ordered?: Yes MRSA Education MRSA Education Provided to pt: Yes Subjective As above Objective Vital Signs Date Time Temp Pulse Resp B/P (MAP) Pulse Ox O2 Delivery O2 Flow Rate FiO2 12/05/24 20:05 72 12/05/24 18:52 16 12/05/24 15:00 96.7 120/62 (81) 95 Room Air 12/03/24 17:44 0.0 95 Vital signs, stable ,afebrile. Pulse Oximetry reflects adequate oxygenation. General: well developed, well nourished. Awake , alert, and oriented x4, resting comfortably in the bed, in no acute distress . Skin: Warm, dry, no pallor, no rash or petechiae. HEENT: Atraumatic, normocephalic, EOMI, anicteric sclera B; pink conjunctiva; PERRLA, normal oropharynx, moist oral and nasal mucosa. Tympanic membrane , nose , throat clear. Neck: Trachea midline. Supple, full range of motion, no JVD, bruit , hepatojugular reflex , lymphadenopathy or masses, or other lesions Cardiac: Regular rhythm, regular rate no murmurs, rubs, or gallops. Normal S1 and S2, no S3 noticed. PMI is normal. Respiratory: Equal breath sounds bilaterally, no tachypnea; lungs clear to auscultation bilaterally, no wheezing ,rub or rales, or crackles. Chest wall is symmetric and without deformity. No signs of trauma. Chest wall is nontender. No signs of respiratory distress. Resonance is normal upon percussion bilaterally. Gastrointestinal: Abdomen symmetric, non-distended, soft, non-tender, normal bowel sounds x4 quadrant, normoactive, no hepatosplenomegaly , no masses , no bruit, no flank pain bilaterally. No voluntary guarding, rebound, or rigidity. No tenderness to percussion. No pulsatile masses. Equal femoral pulses. No Adams's sign or McBurney point tenderness. Back; no CVA tenderness bilaterally, no deformities. Neck and back are without deformity as well. No tenderness noted on palpation of the spinous processes. Spinous processes are midline. Cervical, thoracic, and lumbar paraspinal muscles are not tender and are without spasm. : normal external genitalia, without lesions, swelling, masses or tenderness. Musculoskeletal: Extremities, normal range of motion, non-tender, muscle strength 5/5 x 4. Negative Homans signs bilaterally on lower extremity. Distal pulses full symmetrical, no clubbing, cyanosis , edema. Neurological: Speech is clear, alert, and oriented x 4. No motor or sensory deficit, deep tendon reflexes normal, cerebellar intact. Cranial nerves II-XII intact. Psych: Alert and or appropriate, normal affect. Vascular: Good distal pulses, which are equal x4; capillary refill less than 2 seconds. Lymphatic, no lymphadenopathy. Result Diagram: 12/05/2428 12/05/24527 Coagulation Studies Laboratory Tests Test 11/29/24 06:46 12/01/24 17:00 12/02/24 07:10 Prothrombin Time 10.4 SECONDS (9.0-12.0) INR International Normalized Ratio 1.0 INR Activated Partial Thromboplast Time 70 SECONDS (22-32) *H APTT (Heparin Protocol) 64 SECONDS (45-75) Coagulation Comments Problem\Assessment\Plan Assessment/plan # PAD # SFA occlusion, b/l LE # Cellulitis, left foot # Sepsis 2/2 cellulitis # Aortic aneurysm, 3.5cm -At transferring facility: PT INR 1.12 PTT 33 creatinine 1.37 GFR 53 CRP 162 magnesium 2.1 lactic acid 2.49 normalized to 1.3, procal 2.2, WBC 8.8 CT extremity left with IV contrast no fracture no dislocation or cortical destruction mild lateral soft tissue swelling in the left ankle ultrasound artery bilateral right SFA occlusion monophasic waveforms throughout the left lower extremity no flow in the mid and distal posterior femoral artery -CTA w/runoff revealing complete occlusion of the right SFA at its proximal aspect extending to the mid popliteal level and complete or near complete occlusion of the distal left SFA, infrarenal abdominal aortic aneurysm 3.3x3.5cm -start heparin drip, IVF, abx; consulted surgeon Dr. Joshi and ID Dr. Hahn; follow Lexiscan -11/30: Angiogram by IR. Bain shows reversible inferoseptal defect. -12/01: knit goods mender Dr. Rambo Harvey consulted, given cardiac clearance for surgery as stress test is evaluated to be unremarkable. OR today. -12/02: s/p left femoral and tibial bypass and last common femoral endarterectomy on 12/01/24. Heparin discontinued, started on Eliquis. -12/03: pending rehab, continue PT -12/04: Tele afib w/ RVR in 120s-130s, controlled after IV digoxin. Continued on oral diltiazem and po metoprolol tart started. # Atrial fibrillation w/ RVR -lytes wnl, no hypoxia, not controlled with initially given metoprolol tart IV, start Cardizem drip LVEF 60% start prn metoprolol tart, start oral amiodarone; pending med rec -follow TTE, TSH/T4 -11/30: TSH/T4, lytes wnl. Afib controlled rate on diltiazem drip and oral amiodraone. LVEF 60% without significant VHD. -12/01: afib controlled rate, diltiazem drip transitioned to oral diltiazem. # Prerenal MATILDE 2/2 vasomotor nephropathy -start IVF, follow labs -12/04: resume IVF # CAD s/p cardiac stent (>5 years ago) # Chronic systolic heart failure -pending med rec # Alcohol abuse -mild alcohol withdrawal protocol, thiamine, folic acid Anticipated to be discharged to rehab facility in the morning Sepsis Screening Reassessment Date: Dec 05, 2024 Date of Service: Dec 05, 2024 Billing Provider: BISHOP KOROMA MD Common Visit Codes: 17129-OFW/OBS SAME DATE (HIGH) BISHOP KOROMA MD Dec 05, 2024 20:43
[2024-12-06] VITALS (8 sets, daily range): BP systolic 92–130; BP diastolic 50–81; PULSE 53–87; RESP 12–18; TEMP 97.1–97.8; O2SAT 96–100
[2024-12-06 05:49] LABS: BASOPHILS % (AUTO) 0.6 % (0-1); EOSINOPHILS # (AUTO) 0.3 X10'3 (0-0.9); EOSINOPHILS % (AUTO) 3.9 % (0-6); HEMATOCRIT 34.5 % (42.0-52.0); HEMOGLOBIN 11.1 g/dl (14.0-17.9); LYMPHOCYTES # (AUTO) 0.7 X10'3 (1.1-4.8); LYMPHOCYTES % (AUTO) 10.9 % (21-51); MEAN CORPUSCULAR HEMOGLOBIN 32.2 PG (27.0-31.0); MEAN CORPUSCULAR HGB CONC 32.3 g/dL (33.0-36.5); MEAN CORPUSCULAR VOLUME 99.7 FL (78-98); MEAN PLATELET VOLUME 7.9 FL (7.4-10.4); MONOCYTES # (AUTO) 0.7 X10'3 (0-0.9); NEUTROPHILS # (AUTO) 4.8 X10'3 (1.8-7.7); NEUTROPHILS % (AUTO) 74.6 % (42-75); PLATELET COUNT 192 X10'3 (140-440); RED BLOOD COUNT 3.46 X10'6 (4.70-6.10); RED CELL DISTRIBUTION WIDTH 16.8 % (11.5-14.5); WHITE BLOOD COUNT 6.5 X10'3 (4.5-11.0)
[2024-12-06 06:09] LABS: ALANINE AMINOTRANSFERASE 17 U/L (12-78); ALBUMIN/GLOBULIN RATIO 0.5 (1.1-1.5); ALKALINE PHOSPHATASE 87 IU/L (46-116); ANION GAP 3 (8-16); ASPARTATE AMINO TRANSFERASE 28 U/L (10-37); BILIRUBIN,TOTAL 0.6 MG/DL (0.1-1.0); BLOOD UREA NITROGEN 13 MG/DL (7-18); BUN/CREATININE RATIO 10.7 (10.0-20.0); CALCIUM 8.4 MG/DL (8.5-10.1); CHLORIDE 105 MMOL/L (99-107); CREATININE 1.21 MG/DL (0.60-1.10); GLUCOSE 118 MG/DL (70-104); POTASSIUM 4.1 MMOL/L (3.5-5.1); SODIUM 139 MMOL/L (135-145); TOTAL CARBON DIOXIDE 30.6 MMOL/L (24-32); TOTAL PROTEIN 5.8 G/DL (6.4-8.2); eCRCL 60 ML/MIN; eGFR 58 ML/MIN
--- NOTE | 2024-12-06 14:57 | RADIOLOGY REPORT ---
AP portable chest comparison: 12/02/2019 CLINICAL INDICATION: LEFT PICC PLACEMENT VERIFICATION FINDINGS: PICC line catheter has been placed with its tip in the low superior vena cava. Heart size i s slightly enlarged in the aorta is tortuous.. No infiltrates or effusions. No bony thoracic abnormal ities. IMPRESSION: 1. PICC line catheter tip low superior vena cava
--- NOTE | 2024-12-06 16:57 | PROGRESS NOTE ---
Progress Note ID Providers to CC ~ Progress Note Progress Note: doing well/ok for rehab AMITA BOUCHER MD Dec 06, 2024 16:57
--- NOTE | 2024-12-06 20:11 | PROGRESS NOTE ---
Daily Progress Note Providers to CC ~ new complaint, awaiting discharge to rehab facility PICC line placed today functional in place Central Line/PICC still needed: No Pinto-Non Protocol Pinto Indications Met/Not Met: F/C Indications Not Met Antibiotic Timeout Antibiotic Ordered?: Yes MRSA Education MRSA Education Provided to pt: Yes Subjective As above Objective Vital Signs Date Time Temp Pulse Resp B/P (MAP) Pulse Ox O2 Delivery O2 Flow Rate FiO2 12/06/24 18:30 95 12/06/24 15:00 97.8 16 130/81 (97) 96 Room Air 12/03/24 17:44 0.0 95 Vital signs, stable ,afebrile. Pulse Oximetry reflects adequate oxygenation. General: well developed, well nourished. Awake , alert, and oriented x4, resting comfortably in the bed, in no acute distress . Skin: Warm, dry, no pallor, no rash or petechiae. HEENT: Atraumatic, normocephalic, EOMI, anicteric sclera B; pink conjunctiva; PERRLA, normal oropharynx, moist oral and nasal mucosa. Tympanic membrane , nose , throat clear. Neck: Trachea midline. Supple, full range of motion, no JVD, bruit , hepatojugular reflex , lymphadenopathy or masses, or other lesions Cardiac: Regular rhythm, regular rate no murmurs, rubs, or gallops. Normal S1 and S2, no S3 noticed. PMI is normal. Respiratory: Equal breath sounds bilaterally, no tachypnea; lungs clear to auscultation bilaterally, no wheezing ,rub or rales, or crackles. Chest wall is symmetric and without deformity. No signs of trauma. Chest wall is nontender. No signs of respiratory distress. Resonance is normal upon percussion bilaterally. Gastrointestinal: Abdomen symmetric, non-distended, soft, non-tender, normal bowel sounds x4 quadrant, normoactive, no hepatosplenomegaly , no masses , no bruit, no flank pain bilaterally. No voluntary guarding, rebound, or rigidity. No tenderness to percussion. No pulsatile masses. Equal femoral pulses. No Adams's sign or McBurney point tenderness. Back; no CVA tenderness bilaterally, no deformities. Neck and back are without deformity as well. No tenderness noted on palpation of the spinous processes. Spinous processes are midline. Cervical, thoracic, and lumbar paraspinal muscles are not tender and are without spasm. : normal external genitalia, without lesions, swelling, masses or tenderness. Musculoskeletal: Extremities, normal range of motion, non-tender, muscle strength 5/5 x 4. Negative Homans signs bilaterally on lower extremity. Distal pulses full symmetrical, no clubbing, cyanosis , edema. Neurological: Speech is clear, alert, and oriented x 4. No motor or sensory deficit, deep tendon reflexes normal, cerebellar intact. Cranial nerves II-XII intact. Psych: Alert and or appropriate, normal affect. Vascular: Good distal pulses, which are equal x4; capillary refill less than 2 seconds. Lymphatic, no lymphadenopathy. Result Diagram: 12/06/2451812/06/24518 Coagulation Studies Laboratory Tests Test 11/29/24 06:46 12/01/24 17:00 12/02/24 07:10 Prothrombin Time 10.4 SECONDS (9.0-12.0) INR International Normalized Ratio 1.0 INR Activated Partial Thromboplast Time 70 SECONDS (22-32) *H APTT (Heparin Protocol) 64 SECONDS (45-75) Coagulation Comments Problem\Assessment\Plan Assessment/plan # PAD # SFA occlusion, b/l LE # Cellulitis, left foot # Sepsis 2/2 cellulitis # Aortic aneurysm, 3.5cm -At transferring facility: PT INR 1.12 PTT 33 creatinine 1.37 GFR 53 CRP 162 magnesium 2.1 lactic acid 2.49 normalized to 1.3, procal 2.2, WBC 8.8 CT extremity left with IV contrast no fracture no dislocation or cortical destruction mild lateral soft tissue swelling in the left ankle ultrasound artery bilateral right SFA occlusion monophasic waveforms throughout the left lower extremity no flow in the mid and distal posterior femoral artery -CTA w/runoff revealing complete occlusion of the right SFA at its proximal aspect extending to the mid popliteal level and complete or near complete occlusion of the distal left SFA, infrarenal abdominal aortic aneurysm 3.3x3.5cm -start heparin drip, IVF, abx; consulted surgeon Dr. Joshi and ID Dr. Hahn; follow Lexiscan -11/30: Angiogram by IR. Bain shows reversible inferoseptal defect. -12/01: visual stylist Dr. Rambo Harvey consulted, given cardiac clearance for surgery as stress test is evaluated to be unremarkable. OR today. -12/02: s/p left femoral and tibial bypass and last common femoral endarterectomy on 12/01/24. Heparin discontinued, started on Eliquis. -12/03: pending rehab, continue PT -12/04: Tele afib w/ RVR in 120s-130s, controlled after IV digoxin. Continued on oral diltiazem and po metoprolol tart started. # Atrial fibrillation w/ RVR -lytes wnl, no hypoxia, not controlled with initially given metoprolol tart IV, start Cardizem drip LVEF 60% start prn metoprolol tart, start oral amiodarone; pending med rec -follow TTE, TSH/T4 -11/30: TSH/T4, lytes wnl. Afib controlled rate on diltiazem drip and oral amiodraone. LVEF 60% without significant VHD. -12/01: afib controlled rate, diltiazem drip transitioned to oral diltiazem. # Prerenal MATILDE 2/2 vasomotor nephropathy -start IVF, follow labs -12/04: resume IVF # CAD s/p cardiac stent (>5 years ago) # Chronic systolic heart failure -pending med rec # Alcohol abuse -mild alcohol withdrawal protocol, thiamine, folic acid Anticipated to be discharged to rehab facility in the morning, PICC line is in place functional Sepsis Screening Reassessment Date: Dec 06, 2024 Date of Service: Dec 06, 2024 Billing Provider: BISHOP KOROMA MD Common Visit Codes: [id number] INP/OBS CARE(HIGH) BISHOP KOROMA MD Dec 06, 2024 20:11
[2024-12-07 02:00] VITALS: BP 126/70; PULSE 76; RESP 12; TEMP 97.3; O2SAT 93
[2024-12-07 03:27] LABS: BASOPHILS % (AUTO) 0.6 % (0-1); EOSINOPHILS # (AUTO) 0.2 X10'3 (0-0.9); EOSINOPHILS % (AUTO) 3.1 % (0-6); HEMATOCRIT 31.9 % (42.0-52.0); HEMOGLOBIN 10.3 g/dl (14.0-17.9); LYMPHOCYTES # (AUTO) 0.6 X10'3 (1.1-4.8); LYMPHOCYTES % (AUTO) 8.1 % (21-51); MEAN CORPUSCULAR HEMOGLOBIN 32.1 PG (27.0-31.0); MEAN CORPUSCULAR HGB CONC 32.4 g/dL (33.0-36.5); MEAN CORPUSCULAR VOLUME 99.1 FL (78-98); MEAN PLATELET VOLUME 7.8 FL (7.4-10.4); MONOCYTES # (AUTO) 0.7 X10'3 (0-0.9); NEUTROPHILS % (AUTO) 79.2 % (42-75); PLATELET COUNT 217 X10'3 (140-440); RED BLOOD COUNT 3.22 X10'6 (4.70-6.10); RED CELL DISTRIBUTION WIDTH 16.8 % (11.5-14.5); WHITE BLOOD COUNT 7.6 X10'3 (4.5-11.0)
[2024-12-07 03:47] LABS: ALANINE AMINOTRANSFERASE 24 U/L (12-78); ALBUMIN 1.9 G/DL (3.4-5.0); ALBUMIN/GLOBULIN RATIO 0.5 (1.1-1.5); ALKALINE PHOSPHATASE 91 IU/L (46-116); ANION GAP 3 (8-16); ASPARTATE AMINO TRANSFERASE 19 U/L (10-37); BILIRUBIN,TOTAL 0.7 MG/DL (0.1-1.0); BLOOD UREA NITROGEN 15 MG/DL (7-18); BUN/CREATININE RATIO 12.6 (10.0-20.0); CALCIUM 8.3 MG/DL (8.5-10.1); CHLORIDE 105 MMOL/L (99-107); CREATININE 1.19 MG/DL (0.60-1.10); GLUCOSE 138 MG/DL (70-104); POTASSIUM 3.8 MMOL/L (3.5-5.1); SODIUM 142 MMOL/L (135-145); TOTAL CARBON DIOXIDE 33.6 MMOL/L (24-32); TOTAL PROTEIN 5.7 G/DL (6.4-8.2); eCRCL 61 ML/MIN; eGFR 59 ML/MIN
[2024-12-07 08:30] VITALS: BP_SYST 111; PULSE 72
--- NOTE | 2024-12-07 09:45 | PROGRESS NOTE ---
Progress Note Dictate Providers to CC ~ Subjective Subjective: He is doing fairly well. He is currently working with physical therapy. He is waiting to go to rehab. Objective Objective: GENERAL: He is a pleasant elderly male, sitting up in bed, looking stable. HEENT: He does have an external fixation device at the right mandibular area. LUNGS: Clear to auscultation bilaterally. HEART: Irregularly irregular with a normal rate. ABDOMEN: Soft, nontender, and nondistended. EXTREMITIES: He does not have significant edema. The right lower extremity appears to be perfused. At the distal left lower extremity, he has gangrenous changes involving the fourth and fifth toes, as well as some of the lateral soft tissue. He has another area of gangrenous change medially, extending to the dorsal aspect. Left groin and left lower leg bandaged. Left upper extremity PICC Lab Results: 12/07/24 0300 12/07/24 0300 Problem\Assessment\Plan Additional Plan Cellulitis of distal left lower extremity with gangrenous changes in the setting of severe peripheral arterial disease. Occlusion of SFA s/p left femoral to lower leg bypass. Continue Zosyn - will plan for 4 weeks of therapy from the time of surgery on 12/01 with stop date 12/29 Wound care Rehab placement Antibiotics can be altered if needed - call CHACORTA Seay MD Dec 07, 2024 09:45
--- NOTE | 2024-12-07 18:19 | DISCHARGE SUMMARY ---
Discharge Summary Providers to Feels better today ready to be transferred to rehab facility ~ Discharge Summary Assessment Severe peripheral artery disease bilateral lower extremity Status post left femoral popliteal bypass Cellulitis left foot Sepsis Atrial fibrillation, RVR Chronic kidney disease Coronary disease status post stent Chronic systolic heart failure History of alcoholism Admission Diagnosis: multilevel pad with decreased ann and nonhealing foot wounds Admission Diagnosis Comment: Severe peripheral artery disease bilateral lower extremity Status post left femoral popliteal bypass Cellulitis left foot Sepsis Atrial fibrillation, RVR Chronic kidney disease Coronary disease status post stent Chronic systolic heart failure History of alcoholism Hospital Course DATE OF ADMISSION: November 29, 2024 DATE OF DISCHARGE: December 07, 2024 Discharge Diagnosis\Comment: Severe peripheral artery disease bilateral lower extremity Status post left femoral popliteal bypass Cellulitis left foot Sepsis Atrial fibrillation, RVR Chronic kidney disease Coronary disease status post stent Chronic systolic heart failure History of alcoholism Operations\Procedures: Left lower extremity femoral popliteal bypass Consultants: Surgeon, infectious disease doctor, ingot stripper, interventional radiologist Complications: Non Condition on DC: Stable for transfer Discharge Summary: Aramis Teran is a 79-year old male with a past medical history of atrial fibrillation on Eliquis, CAD s/p PCI, chronic systolic heart failure who was transferred from [facility] for evaluation of left foot cellulitis and necrosis that started after trip and fall 2 weeks ago. Patient denies prior CVA, DVT/PE, or GIB. Patient denies syncope, chest pain, palpitations, shortness of breath, abdominal pain, n/v/d, dysuria, fever, chills. Patient reports non- improving ulcer in his left foot after he had a mechanical fall in the driveway 2 weeks ago. He reports increasing discomfort and pain in his left foot. Initial diagnostic findings are notable for elevated lactic acid at 2.49 at the transferring facility, afib w/ rvr, CTA with runoff revealing complete occlusion of the right SFA at its proximal aspect extending to the mid popliteal level and complete or near complete occlusion of the distal left SFA. Surgeon Dr. Joshi is consulted. Patient is to be admitted for further workups and treatment. After admission patient was extensively evaluated and treated today he is feeling fine ready to be transferred to rehab facility, medication reconciled, follow-up PCP surgeon in one week, recommended to return to emergency department if condition worsens, today on physical exam Vital signs, stable ,afebrile. Pulse Oximetry reflects adequate oxygenation. General: well developed, well nourished. Awake , alert, and oriented x4, resting comfortably in the bed, in no acute distress . Skin: Warm, dry, no pallor, no rash or petechiae. HEENT: Atraumatic, normocephalic, EOMI, anicteric sclera B; pink conjunctiva; PERRLA, normal oropharynx, moist oral and nasal mucosa. Tympanic membrane , nose , throat clear. Neck: Trachea midline. Supple, full range of motion, no JVD, bruit , hepatojugular reflex , lymphadenopathy or masses, or other lesions Cardiac: Regular rhythm, regular rate no murmurs, rubs, or gallops. Normal S1 and S2, no S3 noticed. PMI is normal. Respiratory: Equal breath sounds bilaterally, no tachypnea; lungs clear to auscultation bilaterally, no wheezing ,rub or rales, or crackles. Chest wall is symmetric and without deformity. No signs of trauma. Chest wall is nontender. No signs of respiratory distress. Resonance is normal upon percussion bilaterally. Gastrointestinal: Abdomen symmetric, non-distended, soft, non-tender, normal bowel sounds x4 quadrant, normoactive, no hepatosplenomegaly , no masses , no bruit, no flank pain bilaterally. No voluntary guarding, rebound, or rigidity. No tenderness to percussion. No pulsatile masses. Equal femoral pulses. No Adams's sign or McBurney point tenderness. Back; no CVA tenderness bilaterally, no deformities. Neck and back are without deformity as well. No tenderness noted on palpation of the spinous processes. Spinous processes are midline. Cervical, thoracic, and lumbar paraspinal muscles are not tender and are without spasm. : normal external genitalia, without lesions, swelling, masses or tenderness. Musculoskeletal: Extremities, normal range of motion, non-tender, muscle strength 5/5 x 4. Negative Homans signs bilaterally on lower extremity. Distal pulses full symmetrical, no clubbing, cyanosis , edema. Neurological: Speech is clear, alert, and oriented x 4. No motor or sensory deficit, deep tendon reflexes normal, cerebellar intact. Cranial nerves II-XII intact. Psych: Alert and or appropriate, normal affect. Vascular: Good distal pulses, which are equal x4; capillary refill less than 2 seconds. Lymphatic, no lymphadenopathy. *Problems/Diagnosis: (1) Atrial fibrillation with RVR Status: Acute (2) PAD (peripheral artery disease) Status: Acute Total Time Spent on D/C: > 30 Minutes Date of Service: Dec 07, 2024 Billing Provider: BISHOP KOROMA MD Common Visit Codes: 30507-HVN/OBS DISCH DAY >30min BISHOP KOROMA MD Dec 07, 2024 18:19
== END 2024-12-07 12:48 | DRG 853 ==
LOC: ER 05:15 → ED HOLD 11:42 → PCU 3S 13:35 → CICU 2S 12-01 17:48 → PCU 3S 12-02 15:04
PROVIDERS: ADMIT Nurse Practitioner Family; ATTEND Nurse Practitioner Family
PROC: B4201ZZ Computerized Tomography (CT Scan) of Abdominal Aorta using Low Osmolar Contrast (ICD-10-PCS; 2024-11-29)
PROC: B4241ZZ Computerized Tomography (CT Scan) of Superior Mesenteric Artery using Low Osmolar Contrast (ICD-10-PCS; 2024-11-29)
PROC: B4281ZZ Computerized Tomography (CT Scan) of Bilateral Renal Arteries using Low Osmolar Contrast (ICD-10-PCS; 2024-11-29)
PROC: B42C1ZZ Computerized Tomography (CT Scan) of Pelvic Arteries using Low Osmolar Contrast (ICD-10-PCS; 2024-11-29)
PROC: B4211ZZ Computerized Tomography (CT Scan) of Celiac Artery using Low Osmolar Contrast (ICD-10-PCS; 2024-11-29)
PROC: B42H1ZZ Computerized Tomography (CT Scan) of Bilateral Lower Extremity Arteries using Low Osmolar Contrast (ICD-10-PCS; 2024-11-29)
PROC: 4A02XM4 Measurement of Cardiac Total Activity, External Approach (ICD-10-PCS; 2024-11-30)
PROC: 3E033HZ Introduction of Radioactive Substance into Peripheral Vein, Percutaneous Approach (ICD-10-PCS; 2024-11-30)
PROC: B41D1ZZ Fluoroscopy of Aorta and Bilateral Lower Extremity Arteries using Low Osmolar Contrast (ICD-10-PCS; 2024-11-30)
PROC: 4A02XM4 Measurement of Cardiac Total Activity, External Approach (ICD-10-PCS; 2024-11-30)
PROC: 3E033HZ Introduction of Radioactive Substance into Peripheral Vein, Percutaneous Approach (ICD-10-PCS; 2024-11-30)
PROC: 04CL0ZZ Extirpation of Matter from Left Femoral Artery, Open Approach (ICD-10-PCS; 2024-12-01)
PROC: 03HY32Z Insertion of Monitoring Device into Upper Artery, Percutaneous Approach (ICD-10-PCS; 2024-12-01)
PROC: 02HV33Z Insertion of Infusion Device into Superior Vena Cava, Percutaneous Approach (ICD-10-PCS; 2024-12-01)
PROC: B548ZZA Ultrasonography of Superior Vena Cava, Guidance (ICD-10-PCS; 2024-12-01)
PROC: 041L0JQ Bypass Left Femoral Artery to Lower Extremity Artery with Synthetic Substitute, Open Approach (ICD-10-PCS; principal; 2024-12-01 15:00)
PROC: 02HV33Z Insertion of Infusion Device into Superior Vena Cava, Percutaneous Approach (ICD-10-PCS; 2024-12-07)
DX: A41.9 Sepsis, unspecified organism (principal); N17.0 Acute kidney failure with tubular necrosis; L03.116 Cellulitis of left lower limb; E87.20 Acidosis, unspecified; I50.22 Chronic systolic (congestive) heart failure; I71.43 Infrarenal abdominal aortic aneurysm, without rupture; I25.10 Atherosclerotic heart disease of native coronary artery without angina pectoris; F10.20 Alcohol dependence, uncomplicated; I73.9 Peripheral vascular disease, unspecified; I48.91 Unspecified atrial fibrillation; N18.9 Chronic kidney disease, unspecified; Z79.01 Long term (current) use of anticoagulants; Z95.5 Presence of coronary angioplasty implant and graft; Z92.3 Personal history of irradiation; Z92.21 Personal history of antineoplastic chemotherapy
CPT/HCPCS: 36245; 36415; 36569; 36600; 71045; 73590; 75635; 75716; 76937; 76942; 78452; 80048; 80053; 80061; 81001; 82803; 82948; 83036; 83605; 83735; 83880; 84145; 84439; 84443; 85007; 85018; 85025; 85610; 85730; 86885; 86900; 86901; 87081; 93005; 93017; 93306; 93922; 93970; 97116; 97161; 97164; 97530; 99291; A4615; A4618; A4620; A6196; A6209; A6212; A6213; A6253; A6258; A6260; A6402; A6446; A6449; A6455; A7000; A9500; C1751; C1758; C1760; C1768; C1769; C1894; G0269; G0378; J0131; J1100; J1160; J1644; J1815; J2003; J2250; J2270; J2543; J2704; J2785; J3010; J3370; J3490; J7030; J7040; J7120; P9045; Q9967

== ENCOUNTER 2025-01-04 14:05 | Outpatient (CLI) | payer MEDICARE, MEDICAID ==
[~2025-01-04 14:05] MED LIST: APIX5TAB3 PO; CHOLESTEROL MED; CLOP75TA34 PO; METO-467 PO
--- NOTE | 2025-01-04 18:51 | VASCULAR REPORT ---
SEGMENTAL PRESSURES/ANKLE-BRACHIAL INDEX REASON FOR EXAMINATION: Peripheral arterial disease. History of SFA to popliteal artery bypass graft. COMPARISON: VASC VL ISIDORO on DOS: 11/29/24 FINDINGS: SEGMENTAL BLOOD PRESSURES ARE FOLLOWS: RIGHT: Brachial: 130 mm Hg. Posterior tibial: 146 mm Hg Anterior tibial: 60 mm Hg ISIDORO: 1.12 Waveforms are monophasic. LEFT: Brachial: Not measured due to a PICC in the left upper extremity. Posterior tibial: 72 mm Hg Anterior tibial: 88 mm Hg ISIDORO: 0.68 Waveforms are monophasic. IMPRESSION: The right ISIDORO may be spuriously elevated due to noncompressible vessels. Depressed left ISIDORO corresponds to moderate peripheral arterial disease, unchanged from the prior stud y. Note: Non-compressible/calcified vessels such as seen in the diabetic/ESRD population render falsely elevated and inaccurate segmental pressures. Correlation with doppler Ultrasound evaluation of the lo wer extremities is recommended in this population.
--- NOTE | 2025-01-04 19:07 | VASCULAR REPORT ---
LEFT LOWER EXTREMITY ARTERIAL DUPLEX ULTRASOUND STUDY: REASON FOR EXAM: Peripheral arterial disease. Depressed LLE ISIDORO. History of SFA to popliteal artery bypass graft 12/01/2024. TECHNIQUE: The full lengths of the arterial segments were evaluated with color-flow Doppler ultrasoun d. Suspected abnormalities were evaluated with kim scale ultrasound. Cook 3 Pastry spectral Doppler waveforms, with velocity measurements were obtained. Spectral waveforms with velocity measurements w ere obtained 2 to 4 cm central to any areas of significant stenosis. Common femoral, superficial femo ral, popliteal, posterior tibial, anterior tibial, and dorsal pedal arteries were evaluated. FINDINGS: There is extenisve atherosclerotic plaque throughout the left lower extremity. The common femoral ar kei waveform is monophasic with a brisk upstroke. The superficial femoral and popliteal arteries are patent with monophasic waveforms. The posterior tibial, anterior tibial, and dorsalis pedis arteries are patent with monophasic waveforms. No bypass graft is identified in the left lower extremity. IMPRESSION: Extensive atherosclerotic plaque throughout the left lower extremity with monophasic waveforms throug hout. No focal hemodynamically significant stenosis is identified.
== END 2025-01-04 23:59 | disposition home or self-care (01) ==
LOC: VAS 14:05
PROVIDERS: ATTEND Surgery
DX: I70.202 Unspecified atherosclerosis of native arteries of extremities, left leg (principal)
CPT/HCPCS: 93922; 93926